=== PATIENT | female | born 1975 | race Caucasian/White ===

== ENCOUNTER 2018-02-23 04:28 | Emergency (ER) | payer OTHER ==
[~2018-02-23] VITALS: Ht 162.6 cm; Wt 58.1 kg
--- OUTSIDE RECORDS SUMMARY | 2018-02-23 04:42 | XMS REPORT ---
Author Author MIAH BLAKE Organization [facility] Address [address] [place] [address] Care Team Providers Care Lamp Mechanic Name Role Phone MIAH BLAKE Unavailable PROBLEMS Type Condition ICD9-CM Code [id number] Code Onset Dates Condition Status SNOMED Code Problem Chronic pain syndrome G89.4 Active 502931541 Problem Encounter for dental examination Z01.20 Active 262197242 Problem Psoriasis L40.9 Active 9782784 Problem Alcohol abuse F10.10 Active 79024289 Problem Essential hypertension I10 Active 28077501 ALLERGIES Substance Reaction Event Type Date Status Vicodin itching Drug Allergy Jun, Active SOCIAL HISTORY No smoking Hx information available PLAN OF CARE Activity Details Follow Up prn Reason: VITAL SIGNS Height 64.25 in 2016-07-10 Weight 142.0 lbs 2016-07-10 Temperature 98.4 degrees Fahrenheit 2016-07-10 BMI 24.18 kg/m2 2016-07-10 Blood pressure systolic 116 mmHg 2016-07-10 Blood pressure diastolic 72 mmHg 2016-07-10 MEDICATIONS Medication Instructions Dosage Frequency Start Date End Date Duration Status Potassium Active Zinc Active Calcium 1 tab Active PredniSONE 10 MG Orally Once a day 4 tabs for 3D, then 3tabs for 3D, then 2tabs for 3D, then 1 tab for 3D, then 1/2 tab for 4D then stop 24h Jun, Jul, 14 day(s) Active Calcium Magnesium Active Hydrocortisone 1 % Externally Twice a day 1 application to affected area 12h Jun, Jun, 14 days Active Neurontin 300 MG Orally Three times a day 1 capsule 8h Mar, Active Propranolol HCl 20 mg Orally Twice a day 1 tablet 12h Mar, Short script to get through to appt 07/10 Active RESULTS No Results PROCEDURES Procedure Date Ordered Related Diagnosis Body Site Office Visit, Est Pt., Level 3 Jul 10, 2016 IMMUNIZATIONS No Known Immunizations
--- OUTSIDE RECORDS SUMMARY | 2018-02-23 04:42 | XMS REPORT ---
Author Author MIAH BLAKE [facility] Address [address] [place] [address] Care Team Providers Care Associate Web Developer Name Role Phone MIAH BLAKE Unavailable PROBLEMS Type Condition ICD9-CM Code [id number] Code Onset Dates Condition Status SNOMED Code Problem Essential hypertension I10 Active 86737082 Problem Alcohol abuse F10.10 Active 13073802 ALLERGIES Unknown Allergies SOCIAL HISTORY No smoking Hx information available PLAN OF CARE VITAL SIGNS MEDICATIONS Medication Instructions Dosage Frequency Start Date End Date Duration Status Hydrocortisone 1 % Externally Twice a day 1 application to affected area 12h 12 Jun, 2016 Jun, 14 days Active RESULTS No Results PROCEDURES No Known procedures IMMUNIZATIONS No Known Immunizations
--- OUTSIDE RECORDS SUMMARY | 2018-02-23 04:42 | XMS REPORT ---
Author Author MIAH BLAKE [facility] Address [address] [place] [address] Care Team Providers Care Veneer Jointer Offbearer Name Role Phone MIAH BLAKE Unavailable PROBLEMS Type Condition ICD9-CM Code [id number] Code Onset Dates Condition Status SNOMED Code Problem Chronic pain syndrome G89.4 Active 530625106 Problem Encounter for dental examination Z01.20 Active 526196369 Problem Psoriasis L40.9 Active 7993839 Problem Alcohol abuse F10.10 Active 32882350 Problem Essential hypertension I10 Active 92059822 ALLERGIES No Known Allergies SOCIAL HISTORY No smoking Hx information available PLAN OF CARE VITAL SIGNS MEDICATIONS Medication Instructions Dosage Frequency Start Date End Date Duration Status Propranolol HCl 20 MG TAKE ONE TABLET BY MOUTH TWICE DAILY 30 Active RESULTS No Results PROCEDURES No Known procedures IMMUNIZATIONS No Known Immunizations
--- OUTSIDE RECORDS SUMMARY | 2018-02-23 04:42 | XMS REPORT ---
Author Author MIAH BLAKE [facility] Address [address] [place] [address] Care Team Providers Care Seam Rubbing Machine Operator Name Role Phone MIAH BLAKE Unavailable PROBLEMS Type Condition ICD9-CM Code [id number] Code Onset Dates Condition Status SNOMED Code Problem Chronic pain syndrome G89.4 Active 066854900 Problem Encounter for dental examination Z01.20 Active 616277254 Problem Psoriasis L40.9 Active 6179025 Problem Essential hypertension I10 Active 50363075 Problem Alcohol abuse F10.10 Active 24800496 ALLERGIES No Known Allergies SOCIAL HISTORY No smoking Hx information available PLAN OF CARE VITAL SIGNS MEDICATIONS Unknown Medications RESULTS No Results PROCEDURES No Known procedures IMMUNIZATIONS No Known Immunizations
--- OUTSIDE RECORDS SUMMARY | 2018-02-23 04:42 | XMS REPORT ---
Author Author CLAUDY TEMPLE Organization [employer] Address Unknown Phone Unavailable Care Team Providers Care Scientific Technical Writer Name Role Phone CLAUDY TEMPLE CP Unavailable Allergies No Known Allergies Problems Problem Type Condition Code Onset Dates Condition Status Problem Missed periods N92.6 Active Problem Urinary tract infection, site not specified 599.0 Active Problem Late menstruation N91.0 Active Problem Other specified cardiac dysrhythmias 427.89 Active Problem Other, multiple, and unspecified sites, insect bite, nonvenomous, without mention of infection 919.4 Active Problem Dermatophytosis of the body 110.5 Active Problem Nausea with vomiting 787.01 Active Medications Medication Code System Code Instructions Start Date End Date Status Dosage Neurontin [facility] [address]-23 300 MG Orally Three times a day Apr 10, 2016 1 capsule Propranolol HCl [facility] [address]-50 10 mg Orally Twice a day Apr 10, 2016 2 tablet Results No Known Results Summary Purpose [employer] Submission
--- OUTSIDE RECORDS SUMMARY | 2018-02-23 04:42 | XMS REPORT ---
Author Author MIAH BLAKE Organization [facility] Address [address] [place] [address] Care Team Providers Care Structured Cabling Technician Name Role Phone MIAH BLAKE Unavailable PROBLEMS Type Condition ICD9-CM Code [id number] Code Onset Dates Condition Status SNOMED Code Problem Chronic pain syndrome G89.4 Active 217807057 Problem Encounter for dental examination Z01.20 Active 517324427 Problem Psoriasis L40.9 Active 2430289 Problem Alcohol abuse F10.10 Active 65617373 Problem Essential hypertension I10 Active 90251626 ALLERGIES Substance Reaction Event Type Date Status Vicodin itching Drug Allergy Aug, Active SOCIAL HISTORY Never Assessed PLAN OF CARE Activity Details Follow Up 2 Months Reason: VITAL SIGNS Height 64.25 in 2016-09-02 Weight 144.6 lbs 2016-09-02 Temperature 98.0 degrees Fahrenheit 2016-09-02 BMI 24.63 kg/m2 2016-09-02 Blood pressure systolic 120 mmHg 2016-09-02 Blood pressure diastolic 76 mmHg 2016-09-02 MEDICATIONS Medication Instructions Dosage Frequency Start Date End Date Duration Status Gabapentin 300 MG TAKE ONE CAPSULE BY MOUTH THREE TIMES DAILY 20 Active Propranolol HCl 20 MG TAKE ONE TABLET BY MOUTH TWICE DAILY 30 Active Albuterol Sulfate HFA 108 (90 Base) MCG/ACT Inhalation every 4 hrs 2 puffs as needed 4h Aug, 30 days Active RESULTS Name Result Date Reference Range CULTURE, FUNGAL 2016-09-02 Fungus (Mycology) Culture Final report Result 1 PROCEDURES Procedure Date Ordered Result Body Site SKIN FUNGI CULTURE Sep 02, 2016 IMMUNIZATIONS No Known Immunizations MEDICAL (GENERAL) HISTORY Type Description Date Medical History hypertension Surgical History dilatation and curettage Hospitalization History Addiction treatment center 04/2016-05/2016
--- OUTSIDE RECORDS SUMMARY | 2018-02-23 04:42 | XMS REPORT ---
Author Author CLAUDY TEMPLE Organization [employer] Address Unknown Phone Unavailable Care Team Providers Care Rubber Goods Tester Water Name Role Phone CLAUDY TEMPLE CP Unavailable Allergies No Known Allergies Problems Problem Type Condition Code Onset Dates Condition Status Problem Dermatophytosis of the body 110.5 Active Problem Nausea with vomiting 787.01 Active Problem Urinary tract infection, site not specified 599.0 Active Assessment Alcohol abuse F10.10 Active Problem Other specified cardiac dysrhythmias 427.89 Active Problem Other, multiple, and unspecified sites, insect bite, nonvenomous, without mention of infection 919.4 Active Medications Medication Code System Code Instructions Start Date End Date Status Dosage Neurontin [facility] [address]-63 300 MG Orally Three times a day Apr 10, 2016 1 capsule Propranolol HCl [facility] [address]-60 10 mg Orally Twice a day Apr 10, 2016 2 tablet Results No Known Results Summary Purpose [employer] Submission
--- OUTSIDE RECORDS SUMMARY | 2018-02-23 04:42 | XMS REPORT ---
Author Author CLAUDY TEMPLE [facility] Address [address] [place] [address] Care Team Providers Care Paving Bed Maker Name Role Phone CLAUDY TEMPLE Unavailable PROBLEMS Unknown Problems ALLERGIES Unknown Allergies SOCIAL HISTORY No smoking Hx information available PLAN OF CARE VITAL SIGNS MEDICATIONS Unknown Medications RESULTS No Results PROCEDURES No Known procedures IMMUNIZATIONS No Known Immunizations
--- OUTSIDE RECORDS SUMMARY | 2018-02-23 04:42 | XMS REPORT ---
Author Author MIAH BLAKE Organization [facility] Address [address] [place] [address] Care Team Providers Care Business Continuity Planning Director Name Role Phone MIAH BLAKE Unavailable PROBLEMS Type Condition ICD9-CM Code [id number] Code Onset Dates Condition Status SNOMED Code Problem Chronic pain syndrome G89.4 Active 096928526 Problem Alcohol abuse F10.10 Active 71238287 Problem Essential hypertension I10 Active 63873926 Problem Psoriasis L40.9 Active 4411907 ALLERGIES Substance Reaction Event Type Date Status Vicodin itching Drug Allergy Dec, Active ENCOUNTERS Encounter Location Date Diagnosis [facility] [id number] [place] [phone] Dec, Essential hypertension I10 and Chronic pain syndrome G89.4 [facility] [id number] [place] [phone] Aug, [facility] [id number] [place] [phone] Aug, Dermatitis L30.9 ; Sebaceous cyst L72.3 ; Pain in right hand M79.641 and Pain of left hand M79.642 [facility] [address] [place] [phone] Jul, [facility] [id number] [place] [phone] Jul, Encounter for dental examination Z01.20 [facility] [id number] [place] [phone] Jun, [facility] [id number] [place] [phone] Jun, [facility] [id number] [place] [phone] Jun, Dermatitis L30.9 [facility] [address] [phone] Jun, [facility] [id number] [place] [phone] May, [facility] [address] [phone] May, Essential hypertension I10 [facility] [address] [phone]- [address] May, Dermatitis L30.9 ; Essential hypertension I10 and Alcohol abuse F10.10 [facility] [id number] [place] [phone] May, Encounter for dental examination and cleaning without abnormal findings Z01.[address] [phone] May, [facility] [id number] [place] [phone] May, Missed periods N92.[address] [phone] Apr, Alcohol abuse F10.10 [facility] [address] [phone] Mar, [address] [id number] [place] [phone] Mar, Alcohol abuse F10.10 ; Nausea and vomiting, intractability of vomiting not specified, unspecified vomiting type R11.2 and Encounter for test, result unknown Z32.00 [facility] [id number] [place] [phone] 14 Oct, 2014 [facility] [id number] [place] [phone] Oct, [id number] [phone] Jan, [facility] [address] [address] Jan, [facility] [address] [address] Jan, [facility] [id number] [phone] Jan, [facility] [address] [address] Dec, [facility] [id number] [place] [phone] Dec, [facility] [id number] [address] Dec, [facility] [address] [address] Feb, [facility] [id number] [phone] Feb, IMMUNIZATIONS No Known Immunizations SOCIAL HISTORY Never Assessed REASON FOR VISIT Blood Pressure - TASH Arnett PLAN OF CARE Activity Details Follow Up 6 Months with Mallorie anton/ryan HTN Reason: VITAL SIGNS Height 64.25 in 2017-01-15 Weight 143.5 lbs 2017-01-15 Temperature 98.2 degrees Fahrenheit 2017-01-15 Heart Rate 80 bpm 2017-01-15 Respiratory Rate 20 2017-01-15 BMI 24.44 kg/m2 2017-01-15 Blood pressure systolic 112 mmHg 2017-01-15 Blood pressure diastolic 60 mmHg 2017-01-15 MEDICATIONS Medication Instructions Dosage Frequency Start Date End Date Duration Status Calcium Magnesium Not-Taking Propranolol HCl 20 mg PO Twice a day 1 12h 30 Active Neurontin 300 MG Orally Three times a day 1 capsule 8h Mar, Not-Taking Calcium 1 tab Not-Taking Zinc Not-Taking ProAir HFA 108 (90 Base) MCG/ACT Inhalation every 4 hrs 2 puffs as needed 4h Dec, Active Gabapentin 300 MG Orally TID 1 8h 30 days Active Potassium Not-Taking RESULTS No Results PROCEDURES No Known procedures INSTRUCTIONS MEDICATIONS ADMINISTERED No Known Medications MEDICAL (GENERAL) HISTORY Type Description Date Medical History hypertension Surgical History dilatation and curettage Hospitalization History Addiction treatment center 04/2016-05/2016
--- OUTSIDE RECORDS SUMMARY | 2018-02-23 04:42 | XMS REPORT ---
Author Author MIAH BLAKE Organization [facility] Address [address] [place] [address] Care Team Providers Care Guide Delegate Name Role Phone MIAH BLAKE Unavailable PROBLEMS Type Condition ICD9-CM Code [id number] Code Onset Dates Condition Status SNOMED Code Problem Essential hypertension I10 Active 65739570 Problem Alcohol abuse F10.10 Active 28004597 Assessment Dermatitis L30.9 May, Active 62437322 ALLERGIES Substance Reaction Event Type Date Status Vicodin itching Drug Allergy May, Active SOCIAL HISTORY No smoking Hx information available PLAN OF CARE VITAL SIGNS Height 64.25 in 2016-06-10 Weight 140.3 lbs 2016-06-10 Heart Rate 88 bpm 2016-06-10 Respiratory Rate 20 2016-06-10 BMI 23.89 kg/m2 2016-06-10 Blood pressure systolic 110 mmHg 2016-06-10 Blood pressure diastolic 78 mmHg 2016-06-10 MEDICATIONS Medication Instructions Dosage Frequency Start Date End Date Duration Status Potassium Active PredniSONE 50 MG Orally Once a day 1 tablet 24h May, May, 7 day(s) Active Neurontin 300 MG Orally Three times a day 1 capsule 8h Mar, 30 days Active Zinc Active Calcium Magnesium Active Propranolol HCl 10 mg Orally Twice a day 2 tablet 12h Mar, 30 days Active Calcium 1 tab Active RESULTS No Results PROCEDURES Procedure Date Ordered Related Diagnosis Body Site Office Visit, Est Pt., Level 4 Jun 10, 2016 IMMUNIZATIONS No Known Immunizations
--- OUTSIDE RECORDS SUMMARY | 2018-02-23 04:42 | XMS REPORT ---
Author CLAUDY Munoz Organization [employer] Address Unknown Phone Unavailable Care Team Providers Care Crate Liner Name Role Phone CLAUDY TEMPLE CP Unavailable Allergies, Adverse Reactions, Alerts Substance Reaction Event Type Vicadin Info Not Available Non Drug Allergy Problems Problem Type Condition Code Onset Dates Condition Status Assessment Encounter for test, result unknown Z32.00 Active Problem Dermatophytosis of the body 110.5 Active Problem Nausea with vomiting 787.01 Active Problem Urinary tract infection, site not specified 599.0 Active Assessment Alcohol abuse F10.10 Active Assessment Nausea and vomiting, intractability of vomiting not specified, unspecified vomiting type R11.2 Active Problem Other specified cardiac dysrhythmias 427.89 Active Problem Other, multiple, and unspecified sites, insect bite, nonvenomous, without mention of infection 919.4 Active Medications Medication Code System Code Instructions Start Date End Date Status Dosage Propranolol HCl [facility] [address]-10 10 mg Orally Twice a day Apr 10, 2016 2 tablet Phenergan [facility] [address]-31 25 MG Rectal at night Apr 10, 2016 1 suppository as needed Neurontin [facility] [address]-80 300 MG Orally Three times a day Apr 10, 2016 1 capsule Procedures Procedure Coding System Code Date THER/PROPH/DIAG INJ, SC/IM CPT-4 16642 Apr 10, 2016 Office Visit, New Pt., Level 3 CPT-4 57986 Apr 10, 2016 PHENERGAN (IM) 12.5 MG (25 MG/ML) CPT-4 J2550 Apr 10, 2016 Vital Signs Date/Time: Apr 10, 2016 Cardiac Monitoring Heart Rate 105 bpm Weight 130.3 lbs Height 64.25 in BMI 22.19 Index Blood Pressure Diastolic 102 mmHg Blood Pressure Systolic 198 mmHg Results No Known Results Summary Purpose [employer] Submission
--- OUTSIDE RECORDS SUMMARY | 2018-02-23 04:43 | XMS REPORT | Continuity of Care Document ---
Author Author [facility] Organization [facility] Address [facility] [address] [place] [address] Phone Unavailable Support Name Relationship Address Phone MIMI ZARAGOZA DO Caregiver [address] [place] [address] Unavailable Douglas Braga MD Caregiver [address] [place] [address] AZUL BARBER Next Of Kin [address] [place] [address] Insurance Providers Payer Name Policy Number Subscriber Name Relationship Self Pay Insurance Mimi Mendez Self / Same As Patient Advance Directives Directive Response Recorded Date/Time Do you have an Advanced Directive? No 01/14/10 6:17am Advance Directives No 10/28/12 2:33pm Living Will No 10/28/12 2:33pm Health Care Proxy No 06/12/15 8:23am Power of Manager Search for Health Care No 10/28/12 2:33pm Organ, Tissue, or Eye Donor No 10/28/12 2:33pm Do you have a signed organ donor card? No 01/14/10 6:17am Chief Complaint and Reason for Visit Chief Complaint NAUSEA & VOMITING Reason for Visit Alcohol abuse [id number] Nausea and vomiting Problems Active Problems Medical Problem Onset Date Status Acute chest wall pain Unknown Acute Alcohol abuse Unknown Acute Ankle sprain Unknown Acute Dermatitis Unknown Acute Hypertension Unknown Acute Nausea and vomiting Unknown Acute Tobacco abuse Unknown Acute sprain of hand Unknown Acute uncontrolled hypertension Unknown Acute Medications Current Home Medications Medication Dose Units Route Directions Days/Qty Instructions Start Date Chlordiazepoxide Hcl 10 Mg 10 Mg Oral Four Times Daily as needed for Withdrawal Symptoms 30 06/12/15 Ondansetron* 4 Mg/Tab 4 Mg Oral Three Times Daily As Needed for Nausea/ Vomiting 10 06/12/15 Past Home Medications Medication Directions Ordered Status Acetaminophen/Hydrocodone Bitart 1 Tab Tablet, 1 Tab Oral Every 4 Hrs As Needed Pain 01/14/10 Discontinued Methylprednisolone 4 Mg Dspk, 4 Mg Oral Take As Directed 02/10/10 Discontinued Albuterol 1 Puff Inh, As Needed 10/28/12 Discontinued Promethazine Hcl 25 Mg Tablet, 25 Mg Oral Every 4-6 Hrs As Needed Nausea 05/01 Discontinued Prednisone 20 Mg Tablet, 20 Mg Oral Daily 03/03/13 Discontinued [Proair] , 2 Puff Inhalation As Needed 03/03/13 Discontinued Acetaminophen/ Codeine #3 Tab* 1 Tab Tablet, 1 Ea Oral Every 4-6 Hours for Pain 05/16/13 Discontinued Diclofenac Sodium (Voltaren 75MG*) 75 Mg Tablet.dr, 75 Mg Oral Twice A Day for Pain 05/16/13 Discontinued Butalb/Acetaminophen/Caffeine 1 Each Capsule, 1 Tab Oral Twice Daily As Needed 11/16/13 Discontinued Naproxen 500 Mg Tablet, 500 Mg Oral Twice A Day as needed for Pain 11/28/13 Discontinued Acetaminophen/Hydrocodone Bitart (Lortab 5-325*) 1 Tab Tablet, 1 Ea Oral Every 4-6 Hrs As Needed Pain as needed for Pain 11/28/13 Discontinued Lisinopril (Zestril 20 Mg Tab*) 20 Mg Tablet, 20 Mg Oral Daily 09/25/14 Discontinued Acetaminophen 500 Mg Tablet, Mg Oral As Needed 09/25/14 Discontinued Meloxicam 15 Mg Tablet, 15 Mg Oral Daily 09/25/14 Discontinued Lisinopril (Zestril 20 Mg Tab*) 20 Mg Tablet, 20 Mg Oral Daily 12/18/14 Discontinued Acetaminophen/Hydrocodone Bitart (Lortab 5-325*) 1 Tab Tablet, 1 Each Oral Every 6 Hrs As Needed For Pain 12/18/14 Discontinued Social History Social History Problem Response Recorded Date/Time Smoking Status Current every day smoker 10/28/2012 3:25pm Tobacco Use Cigarettes 10/28/2012 3:25pm Query Response Start Date Stop Date Smoking Status Current every day smoker Hospital Discharge Instructions No hospital discharge instructions. Plan of Care Discharge Date 06/12/15 10:12am Condition at Discharge Stable Instructions/Education Provided Acute Nausea and Vomiting (ED) Prescriptions See Medication Section Referrals Douglas Braga MD - 1 Week Additional Instructions/Education Please return with any worsening symptoms Functional Status Query Response Date Recorded Malcolm Coma Scale Total 15 June 12, 2015 10:12am Patient Behavior Cooperative June 12, 2015 10:12am Allergies, Adverse Reactions, Alerts Allergen Type Severity Reaction Status Last Updated Poison adan extract Allergy Unknown Active 06/12/15 RC COLA Allergy Unknown Active 06/12/15 Immunizations Name Given Type Hx Diphtheria, Pertussis, Tetanus Vaccination Up To Date Historical Hx Influenza Vaccination No Historical Hx Pneumococcal Vaccination No Historical Vital Signs Acute Vital Signs Vital Response Date/Time Temperature (Fahrenheit) 99.3 degrees F (97.6 - 99.5) 06/12/2015 10:12am Temperature Source Temporal Artery 06/12/2015 10:12am Pulse Rate (adult) 94 bpm (60 - 90) 06/12/2015 10:12am Respiratory Rate 20 bpm (12 - 24) 06/12/2015 10:12am Blood Pressure 164/98 mm Hg 06/12/2015 10:12am O2 Sat by Pulse Oximetry 98 % (90 - 100) 06/12/2015 10:12am Oxygen Delivery Method 06/12/2015 10:12am Pain Description 06/12/2015 8:31am Height 5 ft 4 in Weight 125 lb Body Mass Index 21.0 kg/m^2 Results Laboratory Results Test Name Result Units Flags Reference Collection Date/Time Result Date/ Time Comments White Blood Count 6.1 K/uL 4.8-10.8 06/12/2015 8:39am 06/12/2015 9: 11am Red Blood Count 4.22 M/uL 4.20-5.40 06/12/2015 8:39am 06/12/2015 9: 11am Hemoglobin 13.6 gm/dL 12.0-16.0 06/12/2015 8:39am 06/12/2015 9:11am Hematocrit 40.0 % 37.0-47.0 06/12/2015 8:39am 06/12/2015 9:11am Mean Corpuscular Volume 94.8 fL 81.0-99.0 06/12/2015 8:39am 06/12/2015 9:11am Mean Corpuscular Hemoglobin 32.3 pg H 27.0-31.0 06/12/2015 8:39am 2014 9:11am Mean Corpuscular Hemoglobin Concent 34.1 g/dL 30.0-37.0 06/12/2015 8: 39am 06/12/2015 9:11am Red Cell Distribution Width 13.8 % 11.5-14.5 06/12/2015 8:392014 9:11am Platelet Count 243 K/uL 130-400 06/12/2015 8:3906/12/2015 9:11am Mean Platelet Volume 7.5 fL 7.4-10.4 06/12/2015 8:39am 06/12/2015 9: 11am Neutrophils (%) (Auto) 74.5 % 42.2-75.2 06/12/2015 8:3906/12/2015 9: 11am Lymphocytes (%) (Auto) 17.6 % L 20.5-51.1 06/12/2015 8:3906/12/2015 9 :11am Monocytes (%) (Auto) 5.7 % 1.7-9.3 06/12/2015 8:3906/12/2015 9:11am Eosinophils (%) (Auto) 1.0 % 0-3 06/12/2015 8:3906/12/2015 9:11am Basophils (%) (Auto) 1.1 % H 0.0-1.0 06/12/2015 8:3906/12/2015 9: 11am Neutrophils # (Auto) 4.6 K/uL 2.0-6.9 06/12/2015 8:3906/12/2015 9: 11am Lymphocytes # (Auto) 1.1 K/uL L 1.2-3.4 06/12/2015 8:3906/12/2015 9: 11am Monocytes # (Auto) 0.4 K/uL 0.1-0.6 06/12/2015 8:3906/12/2015 9: 11am Eosinophils # (Auto) 0.1 K/uL 0.0-0.7 06/12/2015 8:3906/12/2015 9: 11am Basophils # (Auto) 0.1 K/uL 0.0-0.2 06/12/2015 8:3906/12/2015 9: 11am Random Glucose 91 mg/dL 70-110 06/12/2015 8:3906/12/2015 9:17am Blood Urea Nitrogen 5 mg/dL L 7-18 06/12/2015 8:3906/12/2015 9:17am Creatinine 0.6 mg/dL 0.55-1.02 06/12/2015 8:39am 06/12/2015 9:17am Sodium Level 138 mEq/L 136-145 06/12/2015 8:39am 06/12/2015 9:17am Potassium Level 3.3 mEq/L L 3.5-5.0 06/12/2015 8:39am 06/12/2015 9:17am Chloride Level 100 mEq/L 98-107 06/12/2015 8:39am 06/12/2015 9:17am Carbon Dioxide Level 25.4 mEq/L 21-32 06/12/2015 8:39am 06/12/2015 9: 17am Calcium Level 7.8 mg/dL L 8.8-10.5 06/12/2015 8:39am 06/12/2015 9:17am Total Protein 7.0 gm/dL 6.4-8.2 06/12/2015 8:39am 06/12/2015 9:17am Albumin 3.6 gm/dL 3.4-5.0 06/12/2015 8:39am 06/12/2015 9:17am Total Bilirubin 1.20 mg/dL H 0.00-1.00 06/12/2015 8:39am 06/12/2015 9: 17am Aspartate Amino Transf (AST/SGOT) 72 U/L H 15-37 06/12/2015 8:39am 06/12 9:17am Alanine Aminotransferase (ALT/SGPT) 78 U/L 12-78 06/12/2015 8:39am 9:17am Total Alkaline Phosphatase 93 U/L 46-116 06/12/2015 8:39am 06/12/2015 9 :17am Lipase 198 U/L 65-230 06/12/2015 8:39am 06/12/2015 9:17am Urine Color YELLOW YELLOW 06/12/2015 9:15am 06/12/2015 9:42am Urine Appearance CLEAR CLEAR 06/12/2015 9:15am 06/12/2015 9:42am Urine Glucose (UA) NEGATIVE mg/dL NEGATIVE 06/12/2015 9:15am 2014 9:42am Urine Bilirubin NEGATIVE NEGATIVE 06/12/2015 9:15am 06/12/2015 9: 42am Urine Ketones NEGATIVE mg/dL NEGATIVE 06/12/2015 9:15am 06/12/2015 9: 42am Urine Specific [place] 1.020 1.010-1.025 06/12/2015 9:15am 2014 9:42am Urine Occult Blood NEGATIVE NEGATIVE 06/12/2015 9:15am 06/12/2015 9: 42am Urine pH 7.5 5.0-8.0 06/12/2015 9:15am 06/12/2015 9:42am Urine Protein TRACE mg/dL H NEGATIVE 06/12/2015 9:15am 06/12/2015 9: 42am Urine Urobilinogen 1.0 mg/dL E.U./dL 0.2-1.0 06/12/2015 9:15am 2014 9:42am Urine Nitrate NEGATIVE NEGATIVE 06/12/2015 9:15am 06/12/2015 9:42am Urine Leukocyte Esterase NEGATIVE NEGATIVE 06/12/2015 9:15am 2014 9:42am Urine RBC NEGATIVE /hpf 0 06/12/2015 9:15am 06/12/2015 9:42am Urine WBC 5-9 /hpf H 0-4 06/12/2015 9:15am 06/12/2015 9:42am Urine Squamous Epithelial Cells 6-8 /hpf 0-1 06/12/2015 9:15am 2014 9:42am RARE CLUE CELL NOTED Urine Bacteria 1+ H NEGATIVE 06/12/2015 9:15am 06/12/2015 9:42am Urine Mucus FEW H NEGATIVE 06/12/2015 9:15am 06/12/2015 9:42am Urine HCG, Qualitative NEGATIVE NEG 06/12/2015 9:15am 06/12/2015 9: 03am Glomerular Filtration Rate Calc 117.1 mL/min 06/12/2015 8:39am 2014 9:17am Procedures No known history of procedures. Encounters Encounter Location Arrival/Admit Date Discharge/Depart Date Attending Provider Departed Emergency Room [place] 06/12/15 8:23am 06/12/15 10:12am MIMI ZARAGOZA DO Recent Diagnosis
--- OUTSIDE RECORDS SUMMARY | 2018-02-23 04:43 | XMS REPORT ---
Author Author HALI ULIS [facility] Address [address] [place] [address] Care Team Providers Care Hoisting Laborer Name Role Phone HALI LUIS Unavailable PROBLEMS Type Condition ICD9-CM Code [id number] Code Onset Dates Condition Status SNOMED Code Problem Chronic pain syndrome G89.4 Active 370677208 Problem Encounter for dental examination Z01.20 Active 273880578 Problem Psoriasis L40.9 Active 5038318 Problem Alcohol abuse F10.10 Active 72338828 Problem Essential hypertension I10 Active 99720688 ALLERGIES Substance Reaction Event Type Date Status Vicodin itching Drug Allergy Jul, Active SOCIAL HISTORY No smoking Hx information available PLAN OF CARE Activity Details Follow Up PRN Reason:Pt was referred out VITAL SIGNS Heart Rate 80 bpm 2016-07-22 Blood pressure systolic 107 mmHg 2016-07-22 Blood pressure diastolic 69 mmHg 2016-07-22 MEDICATIONS Medication Instructions Dosage Frequency Start Date End Date Duration Status Gabapentin 300 MG TAKE ONE CAPSULE BY MOUTH THREE TIMES DAILY 20 Active PredniSONE 10 MG Orally Once a day 4 tabs for 3D, then 3tabs for 3D, then 2tabs for 3D, then 1 tab for 3D, then 1/2 tab for 4D then stop 24h Jun, Jul, 14 day(s) Active Propranolol HCl 20 MG TAKE ONE TABLET BY MOUTH TWICE DAILY 30 Active RESULTS No Results PROCEDURES Procedure Date Ordered Related Diagnosis Body Site BITEWINGS - FOUR FILMS Jul 22, 2016 PANORAMIC FILM SEE ALSO CODE 37631 Jul 22, 2016 COMP ORAL EVALUATION - NEW/EST PT Jul 22, 2016 INTRAORL-PERIAPICAL 1 FILM 28275 Jul 22, 2016 INTRAORL-PERIAPICAL EA ADD FILM Jul 22, 2016 INTRAORL-PERIAPICAL EA ADD FILM Jul 22, 2016 INTRAORL-PERIAPICAL EA ADD FILM Jul 22, 2016 INTRAORL-PERIAPICAL EA ADD FILM Jul 22, 2016 INTRAORL-PERIAPICAL EA ADD FILM Jul 22, 2016 INTRAORL-PERIAPICAL EA ADD FILM Jul 22, 2016 INTRAORL-PERIAPICAL EA ADD FILM Jul 22, 2016 IMMUNIZATIONS No Known Immunizations
--- OUTSIDE RECORDS SUMMARY | 2018-02-23 04:43 | XMS REPORT ---
Author Author MIAH BLAKE [facility] Address [address] [place] [address] Care Team Providers Care Disability Advocate Name Role Phone MIAH BLAKE Unavailable PROBLEMS Type Condition ICD9-CM Code [id number] Code Onset Dates Condition Status SNOMED Code Problem Chronic pain syndrome G89.4 Active 679088507 Problem Encounter for dental examination Z01.20 Active 405502549 Problem Psoriasis L40.9 Active 8738671 Problem Essential hypertension I10 Active 49226528 Problem Alcohol abuse F10.10 Active 51532846 ALLERGIES No Known Allergies SOCIAL HISTORY No smoking Hx information available PLAN OF CARE VITAL SIGNS MEDICATIONS Unknown Medications RESULTS No Results PROCEDURES No Known procedures IMMUNIZATIONS No Known Immunizations
--- OUTSIDE RECORDS SUMMARY | 2018-02-23 04:43 | XMS REPORT ---
Author Author MIAH BLAKE [facility] eClinical[employer] Address Unknown Phone Unavailable Care Team Providers Care Skin Tanner Name Role Phone MIAH BLAKE Unavailable Allergies No Known Allergies Problems Problem Type Condition Code Onset Dates Condition Status Assessment Essential hypertension I10 Active Problem Other specified cardiac dysrhythmias 427.89 Active Problem Other, multiple, and unspecified sites, insect bite, nonvenomous, without mention of infection 919.4 Active Problem Missed periods N92.6 Active Problem Essential hypertension I10 Active Problem Late menstruation N91.0 Active Problem Dermatophytosis of the body 110.5 Active Problem Nausea with vomiting 787.01 Active Problem Alcohol abuse F10.10 Active Problem Urinary tract infection, site not specified 599.0 Active Medications No Known Medications Procedures Procedure Coding System Code Date LIPID PANEL CPT-4 01878 Jun 11, 2016 COMPREHEN METABOLIC PANEL CPT-4 88919 Jun 11, 2016 GLYCATED HEMOGLOBIN TEST CPT-4 58015 Jun 11, 2016 ASSAY OF URINE CREATININE CPT-4 66625 Jun 11, 2016 VENIPUNCT, ROUTINE* CPT-4 39279 Jun 11, 2016 MICROALBUMIN, QUANTITATIVE CPT-4 88683 Jun 11, 2016 Results Name Result Date Reference Range Unit Abnormality Flag MICROALBUMIN/CREATININE RATIO, URINE ----Microalb/Creat Ratio <8.0 [id number] 0.0-30.0 mg/g creat ----Creatinine, Urine 37.3 [id number] Not Estab. mg/dL ----Microalbumin, Urine <3.0 [id number] Not Estab. ug/mL LIPID PANEL ----LDL Cholesterol Calc 92 00654363 0-99 mg/dL ----VLDL Cholesterol Jonn 17 78860501 5-40 mg/dL ----Cholesterol, Total 151 31195968 100-199 mg/dL ----HDL Cholesterol 42 03608235 >39 mg/dL ----Triglycerides 85 37180241 0-149 mg/dL ROUTINE VENIPUNCTURE A1C ----Hemoglobin A1c 4.9 84644230 4.8-5.6 % CMP ----Potassium, Serum 4.0 94009558 3.5-5.2 mmol/L ----Sodium, Serum 135 48320409 136-144 mmol/L L ----BUN/Creatinine Ratio 12 20160611 9-23 ----eGFR If Africn Am 137 92535270 >59 mL/min/1.73 ----eGFR If NonAfricn Am 119 04522726 >59 mL/min/1.73 ----Creatinine, Serum 0.51 49645543 0.57-1.00 mg/dL L ----BUN 6 20160611 6-24 mg/dL ----Glucose, Serum 82 20160611 65-99 mg/dL ----AST (SGOT) 38 20160611 0-40 IU/L ----Globulin, Total 2.9 64947560 1.5-4.5 g/dL ----ALT (SGPT) 36 20160611 0-32 IU/L H ----A/G Ratio 1.4 20160611 1.1-2.5 ----Bilirubin, Total 0.7 64796103 0.0-1.2 mg/dL ----Alkaline Phosphatase, S 80 20160611 39-117 IU/L ----Carbon Dioxide, Total 25 20160611 18-29 mmol/L ----Calcium, Serum 9.5 78646986 8.7-10.2 mg/dL ----Protein, Total, Serum 7.1 49412026 6.0-8.5 g/dL ----Albumin, Serum 4.2 29370772 3.5-5.5 g/dL ----Chloride, Serum 95 44025807 97-106 mmol/L L Summary Purpose eClinicalWorks Submission
--- OUTSIDE RECORDS SUMMARY | 2018-02-23 04:43 | XMS REPORT | Continuity of Care Document ---
Author Author [facility] Organization [facility] Address [facility] [address] [place] [address] Phone Unavailable Support Name Relationship Address Phone MIMI ZARAGOZA DO Caregiver [address] [place] [address] Unavailable Douglas Braga MD Caregiver [address] [place] [address] AZUL BARBER Next Of Kin [address] [place] [address] Insurance Providers Payer Name Policy Number Subscriber Name Relationship Self Pay Insurance Mimi Mendez Self / Same As Patient Advance Directives Directive Response Recorded Date/Time Do you have an Advanced Directive? No 01/14/10 6:17am Advance Directives No 09/05/15 9:32pm Living Will No 09/05/15 9:32pm Health Care Proxy No 09/05/15 9:32pm Power of Regional Liaison for Health Care No 09/05/15 9:32pm Organ, Tissue, or Eye Donor No 09/05/15 9:32pm Do you have a signed organ donor card? No 09/05/15 9:32pm Chief Complaint and Reason for Visit Chief Complaint COUGH Reason for Visit [id number] Problems Active Problems Medical Problem Onset Date Status Acute chest wall pain Unknown Acute Alcohol abuse Unknown Acute Alcoholic ketoacidosis Unknown Acute Ankle sprain Unknown Acute Dermatitis Unknown Acute Elevated blood pressure Unknown Acute Hypertension Unknown Acute Nausea and [...] As Needed for Nausea/ Vomiting 10 06/12/15 Chlordiazepoxide Hcl 10 Mg 50 Mg Oral Four Times Daily as needed for Withdrawal Symptoms 30 09/06/15 Ondansetron* 4 Mg/Tab 4 Mg Oral Three Times Daily As Needed as needed for Nausea/Vomiting 09/06/15 Past Home Medications Medication Directions Ordered Status [...] Date/Time Smoking Status Current every day smoker 09/05/2015 10:03pm Tobacco Use Cigarettes 09/05/2015 10:03pm Alcohol Use alcoholic 09/05/2015 10:03pm Drug Use none 09/05/2015 10:03pm Query Response Start Date Stop Date Smoking Status Current every day smoker Hospital Discharge Instructions No hospital discharge instructions. Plan of Care Discharge Date 09/06/15 2:20am Condition at Discharge Stable Instructions/Education Provided Alcohol Withdrawal (ED) Prescriptions See Medication Section Referrals Your Physician - 2-3 Days Additional Instructions/Education Please return immediately if nausea and vomiting returns Functional Status Query Response Date Recorded Malcolm Coma Scale Total 15 September 05, 2015 9:40pm Patient Behavior Cooperative Appropriate September 05, 2015 9:40pm Allergies, Adverse Reactions, Alerts Allergen Type Severity Reaction Status Last Updated Poison adan extract Allergy Unknown Active 06/12/15 RC COLA Allergy Unknown Active 06/12/15 Immunizations Name Given Type Hx Diphtheria, Pertussis, Tetanus Vaccination Unknown Historical Hx Influenza Vaccination No Historical Hx Pneumococcal Vaccination No Historical Vital Signs Acute Vital Signs Vital Response Date/Time Temperature (Fahrenheit) 97.9 degrees F (97.6 - 99.5) 09/05/2015 9:40pm Temperature Source Temporal Artery 09/05/2015 9:40pm Pulse Rate (adult) 88 bpm (60 - 90) 09/06/2015 2:10am Respiratory Rate 20 bpm (12 - 24) 09/06/2015 2:10am Blood Pressure 136/88 mm Hg 09/06/2015 2:10am O2 Sat by Pulse Oximetry 98 % (90 - 100) 09/06/2015 2:10am Oxygen Delivery Method 09/06/2015 2:10am Pain Description 06/12/2015 8:31am Height 5 ft 4 in Weight 130 lb Body Mass Index 22.0 kg/m^2 Results Laboratory Results Test Name Result Units Flags Reference Collection Date/Time Result Date/ Time Comments White Blood Count 6.1 K/uL 4.8-10.8 06/12/2015 8:39am 06/12/2015 9: 11am Red Blood Count 4.22 M/uL 4.20-5.40 06/12/2015 8:39am 06/12/2015 9: 11am Hemoglobin 13.6 gm/dL 12.0-16.0 06/12/2015 8:39am 06/12/2015 9:11am Hematocrit 40.0 % 37.0-47.0 06/12/2015 8:39am 06/12/2015 9:11am Mean Corpuscular Volume 94.8 fL 81.0-99.0 06/12/2015 8:3906/12/2015 9:11am Mean Corpuscular Hemoglobin 32.3 pg H 27.0-31.0 06/12/2015 8:392014 9:11am Mean Corpuscular Hemoglobin Concent 34.1 g/dL 30.0-37.0 06/12/2015 8: 3906/12/2015 9:11am Red Cell Distribution Width 13.8 % 11.5-14.5 06/12/2015 8:392014 9:11am Platelet Count 243 K/uL 130-400 06/12/2015 8:39am 06/12/2015 9:11am Mean Platelet Volume 7.5 fL 7.4-10.4 06/12/2015 8:3906/12/2015 9: 11am Neutrophils (%) (Auto) 74.5 % [...] Monocytes # (Auto) 0.4 K/uL 0.1-0.6 06/12/2015 8:39am 06/12/2015 9: 11am Eosinophils # (Auto) 0.1 K/uL 0.0-0.7 06/12/2015 8:39am 06/12/2015 9: 11am Basophils # (Auto) 0.1 K/uL 0.0-0.2 06/12/2015 8:39am 06/12/2015 9: 11am Random Glucose 91 mg/dL 70-110 06/12/2015 8:39am 06/12/2015 9:17am Blood Urea Nitrogen 5 mg/dL L 7-18 06/12/2015 8:39am 06/12/2015 9:17am Creatinine 0.6 mg/dL 0.55-1.02 06/12/2015 8:39am [...] 06/12/2015 9:15am 06/12/2015 9: 42am Urine Specific [place] 1.020 1.010-1.025 06/12/2015 9:15am 2014 9:42am Urine [...] Calc 117.1 mL/min 06/12/2015 8:39am 2014 9:17am Pending Laboratory Results Test Name Collection Date/Time Procedures No known history of procedures. Encounters Encounter Location Arrival/Admit Date Discharge/Depart Date Attending Provider Departed Emergency Room [place] 09/05/15 9:20pm 09/06/15 2:20am MIMI ZARAGOZA DO Departed Emergency Room [place] 06/12/15 8:23am 06/12/15 10:12am MIMI ZARAGOZA DO Recent Diagnosis
--- OUTSIDE RECORDS SUMMARY | 2018-02-23 04:43 | XMS REPORT ---
Author Author DARÍO BAIRD Organization [employer] Address Unknown Phone Unavailable Care Team Providers Care Employee Benefits Attorney Name Role Phone DARÍO BAIRD CP Unavailable Allergies, Adverse Reactions, Alerts Substance Reaction Event Type Vicadin Info Not Available Non Drug Allergy Problems Problem Type Condition Code Onset Dates Condition Status Assessment Missed periods N92.6 Active Problem Missed periods N92.6 Active Problem Urinary [...] Instructions Start Date End Date Status Dosage Potassimin [facility] [address]-23 75 MG Orally Once a day 1 tablet Propranolol HCl [facility] [address]-81 10 mg Orally Twice a day Apr 10, 2016 2 tablet Calcium NDC 0 Oral [place] [address]-22 30 MG Orally Once a day 1 tablet with a meal Neurontin [facility] [address]-85 300 MG Orally Three times a day Apr 10, 2016 1 capsule Procedures Procedure Coding System Code Date Office Visit, Est Pt., Level 3 CPT-4 68123 May 20, 2016 URINE TEST CPT-4 43341 May 20, 2016 Vital Signs Date/Time: May 20, 2016 Cardiac Monitoring Heart Rate 80 bpm Weight 131 lbs Height 64.25 in BMI 22.31 Index Blood Pressure Diastolic 90 mmHg Blood Pressure Systolic 132 mmHg Results Name Result Date Reference Range Unit Abnormality Flag TEST, URINE (IN HOUSE) ----RESULTS negative [id number] ----Lot # [id number] ----Control + [id number] ----Exp date [id number] Summary Purpose eClinicalWorks Submission
--- OUTSIDE RECORDS SUMMARY | 2018-02-23 04:43 | XMS REPORT ---
Author Author MIAH BLAKE [facility] Address [address] [place] [address] Care Team Providers Care Wardrobe Attendant Name Role Phone MIAH BLAKE Unavailable PROBLEMS Type Condition ICD9-CM Code [id number] Code Onset Dates Condition Status SNOMED Code Problem Chronic pain syndrome G89.4 Active 086886100 Problem Encounter for dental examination Z01.20 Active 714455463 Problem Psoriasis L40.9 Active 8810852 Problem Alcohol abuse F10.10 Active 81774995 Problem Essential hypertension I10 Active 15994267 ALLERGIES No Information SOCIAL HISTORY Never Assessed PLAN OF CARE VITAL SIGNS MEDICATIONS Unknown Medications RESULTS No Results PROCEDURES No Known procedures IMMUNIZATIONS No Known Immunizations MEDICAL (GENERAL) HISTORY Type Description Date Medical History hypertension Surgical History dilatation and curettage Hospitalization History [facility] center 04/2016-05/2016
--- OUTSIDE RECORDS SUMMARY | 2018-02-23 04:44 | XMS REPORT | Continuity of Care Document ---
Demographics Preferred Language Unknown Marital Status Unknown [place] Affiliation Unknown Race Unknown Ethnic Group Unknown Author Author [facility] Address Unknown Phone Unavailable Allergies Active Description Code Type Severity Reaction Onset Reported/Identified Relationship to Patient Clinical Status Yes NKDA N/A N/A Yes NKDA N/A N/A Medications Medication Packaging Start Date Stop Date Route Dosage Sig LISINOPRIL ORAL 07/25/2014 ORAL daily Problems Date Dx Coded Attending Type Code Diagnosis Diagnosed By 02/24/2012 110.5 DERMATOPHYTOSIS TINEA CORPORIS 02/24/2012 599.0 URINARY TRACT INFECTION 02/24/2012 110.5 DERMATOPHYTOSIS TINEA CORPORIS 02/24/2012 599.0 URINARY TRACT INFECTION Procedures Code [place] [address] UA LONG DIP 01/07/2013 08134 CULTURE URINE 01/09/2013 Results Test Result Range Comp. Metabolic Panel (14) - 06/11/16 12:51 Glucose, Serum 82 mg/dL 65-99 BUN 6 mg/dL 6-24 Creatinine, Serum 0.51 mg/dL 0.57-1.00 eGFR If NonAfricn Am 119 mL/min/1.73 >59 eGFR If Africn Am 137 mL/min/1.73 >59 BUN/Creatinine Ratio 12 9-23 Sodium, Serum 135 mmol/L 136-144 Potassium, Serum 4.0 mmol/L 3.5-5.2 Chloride, Serum 95 mmol/L 97-106 Carbon Dioxide, Total 25 mmol/L 18-29 Calcium, Serum 9.5 mg/dL 8.7-10.2 Protein, Total, Serum 7.1 g/dL 6.0-8.5 Albumin, Serum 4.2 g/dL 3.5-5.5 Globulin, Total 2.9 g/dL 1.5-4.5 A/G Ratio 1.4 1.1-2.5 Bilirubin, Total 0.7 mg/dL 0.0-1.2 Alkaline Phosphatase, S 80 IU/L 39-117 AST (SGOT) 38 IU/L 0-40 ALT (SGPT) 36 IU/L 0-32 Lipid Panel - 06/11/16 12:51 Cholesterol, Total 151 mg/dL 100-199 Triglycerides 85 mg/dL 0-149 HDL Cholesterol 42 mg/dL >39 VLDL Cholesterol Jonn 17 mg/dL 5-40 LDL Cholesterol Calc 92 mg/dL 0-99 Hemoglobin A1c - 06/11/16 12:51 Hemoglobin A1c 4.9 % 4.8-5.6 Microalb/Creat Ratio, Rand Ur - 06/11/16 12:51 Creatinine, Urine 37.3 mg/dL Not Estab. Microalbumin, Urine <3.0 ug/mL Not Estab. Microalb/Creat Ratio <8.0 mg/g creat 0.0-30.0 Fungus (Mycology) Culture - 09/02/16 17:04 Fungus (Mycology) Culture Note Encounters ACCT No. Visit Date/Time Discharge Status Pt. Type Provider Facility Loc./Unit Complaint [id number] 01/07/2013 13:47:00 Document Registration [id number] 02/24/2012 14:21:00 Document Registration [id number] 10/01/2016 08:35:00 Document Registration [id number] 02/09/2018 17:00:00 02/09/2018 23:59:59 C[facility] [id number] 06/13/2016 07:05:00 Document Registration [id number] 06/13/2016 08:35:00 Document Registration [id number] 02/08/2015 08:09:45 02/08/2015 08:09:46 DIS Outpatient [id number] 07/27/2014 06:03:53 Document Registration [id number] 07/27/2014 06:03:50 Document Registration [id number] 02/28/2016 19:52:29 02/28/2016 19:52:29 DIS Outpatient [facility]
--- OUTSIDE RECORDS SUMMARY | 2018-02-23 04:44 | XMS REPORT | Continuity of Care Document ---
Author Author [facility] Address [facility] [address] [place] [address] Phone Unavailable Support Name Relationship Address Phone THIERRY LEYVA MD Caregiver [address] [place] [address] Douglas Braga MD Caregiver [address] [place] [address] AZUL BARBER Next Of Kin [address] [place] [address] Insurance Providers Payer Name Policy Number Subscriber Name Relationship Self Pay Insurance Mimi Mendez Self / Same As Patient Advance Directives Directive Response Recorded Date/Time Do you have an Advanced Directive? No 01/14/10 6:17am Advance Directives No 10/28/12 2:33pm Living Will No 10/28/12 2:33pm Health Care Proxy No 09/25/14 8:42am Power of Equipment Service Engineer for Health Care No 10/28/12 2:33pm Organ, Tissue, or Eye Donor No 10/28/12 2:33pm Do you have a signed organ donor card? No 01/14/10 6:17am Problems Medical Problems Problem Onset Date Status Dermatitis Unknown Active sprain of hand Unknown Active uncontrolled hypertension Unknown Active Ankle sprain Unknown Active Medications Medication Dose Route Sig Days/Qty Instructions Order Date Discontinued Date Status Acetaminophen/Hydrocodone Bitart 1 Tab PO EVERY 4 HRS NEEDED PAIN 15 Qty 01/14/10 10/28/12 Discontinued Methylprednisolone 4 Mg PO Take as directed 21 Qty 02/10/10 10/28/12 Discontinued Albuterol NEEDED 10/28/12 09/25/14 Discontinued Promethazine HCl 25 Mg PO EVERY 4-6 HRS NEEDED NAUSEA 10 Qty 09/25/14 Discontinued Prednisone 20 Mg PO DAILY 5 Qty 03/03/13 09/25/14 Discontinued [proair] 2 Puff INH NEEDED 03/03/13 09/25/14 Discontinued Acetaminophen/ Codeine #3 Tab* 1 Ea PO EVERY 4-6 HOURS For PAIN 10 Qty 05/16/13 09/25/14 Discontinued Diclofenac Sodium (Voltaren 75MG*) 75 Mg PO TWICE A DAY For PAIN 30 Qty 05/16/13 09/25/14 Discontinued Butalb/Acetaminophen/Caffeine 1 Tab PO TWICE DAILY NEEDED 4 Qty 09/25/14 Discontinued Naproxen 500 Mg PO TWICE A DAY PRN PAIN 20 Qty 11/28/13 09/25/14 Discontinued Acetaminophen/Hydrocodone Bitart (Lortab 5-325*) 1 Ea PO EVERY 4-6 HRS NEEDED PAIN PRN PAIN 5 Qty 11/28/13 09/25/14 Discontinued Lisinopril (Zestril 20 Mg Tab*) 20 Mg PO DAILY 09/25/14 Active Acetaminophen Mg PO NEEDED 09/25/14 Active Meloxicam 15 Mg PO DAILY 30 Qty 09/25/14 Active Social History Social History Problem Response Recorded Date/Time Smoking Status Current every day smoker 10/28/2012 3:25pm Tobacco Use Cigarettes 10/28/2012 3:25pm Query Response Start Date Stop Date Smoking Status Current every day smoker Hospital Discharge Instructions No hospital discharge instructions. Plan of Care No plan of care. Functional Status Query Response Date Recorded [place] Coma Scale Total 15 September 25, 2014 8:50am Patient Behavior Cooperative September 25, 2014 8:50am Allergies, Adverse Reactions, Alerts Allergen Type Severity Reaction Status Last Updated NO KNOWN ALLERGIES Active 09/25/14 Immunizations Name Given Type Hx Diphtheria, Pertussis, Tetanus Vaccination Up To Date Historical Hx Influenza Vaccination No Historical Hx Pneumococcal Vaccination No Historical Vital Signs Acute Vital Signs Vital Response Date/Time Temperature (Fahrenheit) 97.8 degrees F (97.6 - 99.5) Temperature Source Temporal Artery Pulse Rate (adult) 93 bpm (60 - 90) Respiratory Rate 16 bpm (12 - 24) Blood Pressure 141/86 mm Hg O2 Sat by Pulse Oximetry 100 % (90 - 100) Oxygen Delivery Method Pain Intensity 5 Pain Location Body Site Modifier Pain Description Height 5 ft 4 in Weight 125 lb Body Mass Index 21.0 kg/m^2 Results Test Source Date Result Interp. Ref. Range Comments Alanine Aminotransferase (ALT/SGPT) November 16, 2013 12:40pm 66 U/L N 12- 78 Albumin November 16, 2013 12:40pm 3.4 gm/dL N 3.4-5.0 Amylase Level November 16, 2013 12:40pm 27 U/L N 25-115 Aspartate Amino Transf (AST/SGOT) November 16, 2013 12:40pm 73 U/L H 15-37 Barbiturates November 16, 2013 3:15pm Negative - Basophils # (Auto) November 16, 2013 12:40pm 0.1 K/uL N 0.0-0.2 Basophils (%) (Auto) November 16, 2013 12:40pm 0.9 % N 0.0-1.0 Blood Urea Nitrogen November 16, 2013 12:40pm 3 mg/dL L 7-18 Calcium Level November 16, 2013 12:40pm 8.6 mg/dL L 8.8-10.5 Carbon Dioxide Level November 16, 2013 12:40pm 22.9 mEq/L N 21-32 Chloride Level November 16, 2013 12:40pm 99 mEq/L N 98-107 Creatinine November 16, 2013 12:40pm 0.7 mg/dL N 0.6-1.0 Eosinophils # (Auto) November 16, 2013 12:40pm 0.0 K/uL N 0.0-0.7 Eosinophils (%) (Auto) November 16, 2013 12:40pm 0.1 % N 0.0-2.0 Ethyl Alcohol Level October 28, 2012 3:15pm 52.0 mg/dL - Glomerular Filtration Rate Calc November 16, 2013 12:40pm 98.5 mL/min N 60.0-128.0 Hematocrit November 16, 2013 12:40pm 46.0 % N 37.0-47.0 Hemoglobin November 16, 2013 12:40pm 15.3 gm/dL N 12.0-16.0 Lipase November 16, 2013 12:40pm 105 U/L N 65-230 Lymphocytes # (Auto) November 16, 2013 12:40pm 0.8 K/uL L 1.2-3.4 Lymphocytes (%) (Auto) November 16, 2013 12:40pm 10.2 % L 20.5-51.1 Magnesium Level November 16, 2013 12:40pm 1.7 mg/dL L 1.8-2.4 Mean Corpuscular Hemoglobin November 16, 2013 12:40pm 29.9 pg N 27.0-31.0 Mean Corpuscular Hemoglobin Concent November 16, 2013 12:40pm 33.4 g/dL N 30.0-37.0 Mean Corpuscular Volume November 16, 2013 12:40pm 89.6 fL N 81.0-99.0 Mean Platelet Volume November 16, 2013 12:40pm 5.9 fL L 7.4-10.4 Monocytes # (Auto) November 16, 2013 12:40pm 0.7 K/uL H 0.1-0.6 Monocytes (%) (Auto) November 16, 2013 12:40pm 8.6 % N 1.7-9.3 Neutrophils # (Auto) November 16, 2013 12:40pm 6.1 K/uL N 2.0-6.9 Neutrophils (%) (Auto) November 16, 2013 12:40pm 80.2 % H 42.2-75.2 Phencyclidine (PCP) Screen November 16, 2013 3:15pm Negative - Platelet Count November 16, 2013 12:40pm 246 K/uL N 130-400 Potassium Level November 16, 2013 12:40pm 3.2 mEq/L L 3.5-5.0 Random Glucose November 16, 2013 12:40pm 99 mg/dL N 70-110 Red Blood Count November 16, 2013 12:40pm 5.13 M/uL N 4.20-5.40 Red Cell Distribution Width November 16, 2013 12:40pm 11.3 % L 11.5-14.5 Sodium Level November 16, 2013 12:40pm 135 mEq/L L 136-145 Total Alkaline Phosphatase November 16, 2013 12:40pm 79 U/L N 50-136 Total Bilirubin November 16, 2013 12:40pm 0.50 mg/dL N 0.00-1.00 Total Protein November 16, 2013 12:40pm 7.2 gm/dL N 6.4-8.2 Tricyclic Antidepressants November 16, 2013 3:15pm Negative - Urine Amorphous Sediment January 26, 2013 11:00am 2+ H - Urine Amphetamines Screen November 16, 2013 4:05pm Negative ng/mL - Urine Appearance November 16, 2013 3:15pm Clear - Urine Bacteria November 16, 2013 3:15pm Trace - Urine Barbiturates Screen November 16, 2013 4:05pm Negative ng/mL - Urine Benzodiazepines Screen November 16, 2013 4:05pm Negative ng/mL - Urine Bilirubin November 16, 2013 3:15pm Negative - Urine Cannabinoids Screen November 16, 2013 4:05pm Positive H - Carboxy THC GC/MS Conf 170 ng/mL Cutoff=10 01 Urine Cocaine Level November 16, 2013 3:15pm Negative - Urine Cocaine Screen November 16, 2013 4:05pm Negative ng/mL - Urine Color November 16, 2013 3:15pm Yellow - Urine Glucose (UA) November 16, 2013 3:15pm Negative mg/dL - Urine HCG, Qualitative November 16, 2013 3:15pm Negative - Urine Ketones November 16, 2013 3:15pm 15 mg/dL - Urine Leukocyte Esterase November 16, 2013 3:15pm Negative - Urine Marijuana (THC) Screen November 16, 2013 3:15pm Positive - Urine Methamphetamines Screen November 16, 2013 3:15pm Negative - Urine Mucus October 28, 2012 2:59pm Few H - Urine Nitrate November 16, 2013 3:15pm Negative - Urine Occult Blood November 16, 2013 3:15pm 1+ (small) H - Urine Opiates Screen November 16, 2013 4:05pm Negative ng/mL - Opiate test includes Codeine and Morphine only. Urine Phencyclidine Screen November 16, 2013 4:05pm Negative ng/mL - Performed at: - [facility] [id number] Manager Laundry: Lissette Arias MD, Phone: [phone] Urine Protein November 16, 2013 3:15pm Negative mg/dL - Urine RBC November 16, 2013 3:15pm 0-3 /hpf - Urine Specific [place] November 16, 2013 3:15pm < 1.005 L 1.010-1.025 Urine Squamous Epithelial Cells November 16, 2013 3:15pm 10-15 /hpf - Urine Urobilinogen November 16, 2013 3:15pm 0.2 E.U./dL - Urine WBC November 16, 2013 3:15pm Negative /hpf - Urine pH November 16, 2013 3:15pm - White Blood Count November 16, 2013 12:40pm 7.6 K/uL N 4.8-10.8 Blood Culture Blood November 16, 2013 12:40pm NO GROWTH AFTER 5 DAYS Urine Culture Urine,Clean Catch November 16, 2013 3:15pm Procedures Procedure Status Date Provider(s) X-ray of right ankle, three or more views completed 09/25/14 THIERRY LEYVA MD Encounters Encounter Location Date/Time Departed Emergency Room [facility] 09/25/14 8:45am Recent Diagnosis
--- OUTSIDE RECORDS SUMMARY | 2018-02-23 04:44 | XMS REPORT | Continuity of Care Document ---
Author Author [facility] Organization [facility] Address [facility] [address] [place] [address] Phone Unavailable Support Name Relationship Address Phone RHYS ALEXIS DO Caregiver [address] [place] [address] Douglas Braga MD Caregiver [address] [place] [address] AZUL BARBER Next Of Kin [address] [place] [address] Insurance Providers Payer Name Policy Number Subscriber Name Relationship Self Pay Insurance Mimi Mendez Self / Same As Patient Advance Directives Directive Response Recorded Date/Time Do you have an Advanced Directive? No 01/14/10 6:17am Advance Directives No 10/28/12 2:33pm Living Will No 10/28/12 2:33pm Health Care Proxy No 12/18/14 3:26pm Power of Network Operations Manager for Health Care No 10/28/12 2:33pm Organ, Tissue, or Eye Donor No 10/28/12 2:33pm Do you have a signed organ donor card? No 01/14/10 6:17am Problems Medical Problems Problem Onset Date Status Dermatitis Unknown Active sprain of hand Unknown Active uncontrolled hypertension Unknown Active Ankle sprain Unknown Active Acute chest wall pain Unknown Active Hypertension Unknown Active Medications Medication Dose Route Sig [...] Mg PO DAILY 30 Qty 09/25/14 Active Lisinopril (Zestril 20 Mg Tab*) 20 Mg PO DAILY 30 Qty 12/18/14 Active Acetaminophen/Hydrocodone Bitart (Lortab 5-325*) 1 Each PO EVERY 6 HRS NEEDED FOR PAIN 10 Qty 12/18/14 Active Social History Social History Problem Response Recorded Date/Time Smoking Status Current every day smoker 10/28/2012 3:25pm Tobacco Use Cigarettes 10/28/2012 3:25pm Query Response Start Date Stop Date Smoking Status Current every day smoker Hospital Discharge Instructions No hospital discharge instructions. Plan of Care No plan of care. Functional Status Query Response Date Recorded [place] Coma Scale Total 15 December 18, 2014 5:16pm Patient Behavior Cooperative Appropriate December 18, 2014 5:16pm Allergies, Adverse Reactions, Alerts Allergen Type Severity Reaction Status Last Updated NO KNOWN ALLERGIES Active 09/25/14 Immunizations Name Given Type Hx Diphtheria, Pertussis, Tetanus Vaccination Up To Date Historical Hx Influenza Vaccination No Historical Hx Pneumococcal Vaccination No Historical Vital Signs Acute Vital Signs Vital Response Date/Time Temperature (Fahrenheit) 99.2 degrees F (97.6 - 99.5) Temperature Source Temporal Artery Pulse Rate (adult) 86 bpm (60 - 90) Respiratory Rate 20 bpm (12 - 24) Blood Pressure 157/110 mm Hg O2 Sat by Pulse Oximetry 98 % (90 - 100) Oxygen Delivery Method Pain Intensity 5 Pain Location Body Site Modifier Pain Description Pain Duration > 6 Hours Height 5 ft 4.25 in Weight 125 lb Body Mass Index [...] 2013 3:15pm Negative - Basophils # (Auto) December 18, 2014 3:30pm 0.0 K/uL N 0.0-0.2 Basophils (%) (Auto) December 18, 2014 3:30pm 0.3 % N 0.0-1.0 Blood Urea Nitrogen December 18, 2014 3:30pm 8 mg/dL N 7-18 Calcium Level December 18, 2014 3:30pm 8.6 mg/dL L 8.8-10.5 Carbon Dioxide Level December 18, 2014 3:30pm 26.3 mEq/L N 21-32 Chloride Level December 18, 2014 3:30pm 100 mEq/L N 98-107 Creatine Kinase MB December 18, 2014 3:30pm 1.2 NG/ML N 0-3.6 Creatinine December 18, 2014 3:30pm 0.7 mg/dL N 0.6-1.0 Eosinophils # (Auto) December 18, 2014 3:30pm 0.1 K/uL N 0.0-0.7 Eosinophils (%) (Auto) December 18, 2014 3:30pm 1.5 % N 0-3 Ethyl Alcohol Level October 28, 2012 3:15pm 52.0 mg/dL - Glomerular Filtration Rate Calc December 18, 2014 3:30pm 98.0 mL/min N - 128.0 Hematocrit December 18, 2014 3:30pm 44.7 % N 37.0-47.0 Hemoglobin December 18, 2014 3:30pm 15.1 gm/dL N 12.0-16.0 Lipase November 16, 2013 12:40pm 105 U/L N 65-230 Lymphocytes # (Auto) December 18, 2014 3:30pm 1.7 K/uL N 1.2-3.4 Lymphocytes (%) (Auto) December 18, 2014 3:30pm 17.2 % L 20.5-51.1 Magnesium Level November 16, 2013 12:40pm 1.7 mg/dL L 1.8-2.4 Mean Corpuscular Hemoglobin December 18, 2014 3:30pm 31.9 pg H 27.0-31.0 Mean Corpuscular Hemoglobin Concent December 18, 2014 3:30pm 33.7 g/dL N 30.0-37.0 Mean Corpuscular Volume December 18, 2014 3:30pm 94.7 fL N 81.0-99.0 Mean Platelet Volume December 18, 2014 3:30pm 7.5 fL N 7.4-10.4 Monocytes # (Auto) December 18, 2014 3:30pm 0.4 K/uL N 0.1-0.6 Monocytes (%) (Auto) December 18, 2014 3:30pm 4.2 % N 1.7-9.3 Myoglobin December 18, 2014 3:30pm 27.0 NG/ML N 10.5-92.5 Neutrophils # (Auto) December 18, 2014 3:30pm 7.4 K/uL H 2.0-6.9 Neutrophils (%) (Auto) December 18, 2014 3:30pm 76.7 % H 42.2-75.2 Phencyclidine (PCP) Screen November 16, 2013 3:15pm Negative - Platelet Count December 18, 2014 3:30pm 356 K/uL N 130-400 Potassium Level December 18, 2014 3:30pm 3.8 mEq/L N 3.5-5.0 Random Glucose December 18, 2014 3:30pm 77 mg/dL N 70-110 Red Blood Count December 18, 2014 3:30pm 4.73 M/uL N 4.20-5.40 Red Cell Distribution Width December 18, 2014 3:30pm 13.7 % N 11.5-14.5 Sodium Level December 18, 2014 3:30pm 136 mEq/L N 136-145 Total Alkaline Phosphatase November 16, 2013 12:40pm 79 U/L N 50-136 Total Bilirubin November 16, 2013 12:40pm 0.50 mg/dL N 0.00-1.00 Total Creatine Kinase December 18, 2014 3:30pm 187 U/L N 26-192 Total Protein November 16, 2013 12:40pm 7.2 gm/dL N 6.4-8.2 Tricyclic Antidepressants November 16, 2013 3:15pm Negative - Troponin I December 18, 2014 3:30pm 0.0 NG/ML N 0.0-0.2 Urine Amorphous Sediment January 26, 2013 11:00am [...] 4:05pm Negative ng/mL - Performed at: - [facility] [id number] [place], [place] [id number] Oil Truck Driver: Lissette Arias MD, Phone: [phone] Urine Protein November 16, 2013 3:15pm Negative mg/dL - Urine RBC November 16, 2013 3:15pm 0-3 /hpf - Urine Specific [place] November 16, 2013 3:15pm < 1.005 L 1.010-1.025 Urine Squamous Epithelial Cells November 16, 2013 3:15pm 10-15 /hpf - Urine Urobilinogen November 16, 2013 3:15pm 0.2 E.U./dL - Urine WBC November 16, 2013 3:15pm Negative /hpf - Urine pH November 16, 2013 3:15pm - White Blood Count December 18, 2014 3:30pm 9.6 K/uL N 4.8-10.8 Blood Culture Blood November 16, 2013 12:40pm NO GROWTH AFTER 5 DAYS Urine Culture Urine,Clean Catch November 16, 2013 3:15pm Procedures Procedure Status Date Provider(s) X-ray of right ankle, three or more views completed 09/25/14 THIERRY LEYVA MD X-ray of chest, PA and lateral views completed 12/18/14 RHYS ALEXIS DO Encounters Encounter Location Date/Time Departed Emergency Room [facility] 12/18/14 3:22pm Departed Emergency Room [facility] 09/25/14 8:45am Recent Diagnosis
[2018-02-23] MEDS ORDERED: RX-NEO/POLYB/HC OTIC (CORTISPORIN) SUSP 10 ML BTL OT STA (04:51)
[2018-02-23] MEDS ORDERED: NEOM10DR42 OT (04:55)
[2018-02-23] MEDS ORDERED: KETOROLAC 60 MG/2 ML VIAL ONE (04:55)
[2018-02-23] MEDS ORDERED: CEFD300C3 PO (04:55)
[2018-02-23] MEDS ORDERED: RX-NEO/POLYB/HC OTIC (CORTISPORIN) SUSP 10 ML BTL ONE (04:55)
--- NOTE | 2018-02-23 04:55 | ED EENT ---
History of Present Illness General Chief Complaint: Ear Problems Stated Complaint: EAR PAIN Nursing Triage Note: PATIENT HERE FOR EAR PAIN AFTER BEING DIAGNOSED WITH AN EAR INFECTION BY [facility] 1 WEEK AGO. SHE HAS BEEN TAKING AMOXICILLIN BUT STATES THE PAIN "WOKE HER UP" THIS MORNING AND IBUPROFEN IS NOT HELPING. Past [id number] Hx Patient Social History Alcohol Use: Denies Use Recreational Drug Use: No Smoking Status: Current Everyday Smoker Type Used: Cigarettes 2nd Hand Smoke Exposure: Yes Recent Foreign Travel: No Contact w/Someone Who Travel: No Recent Infectious Disease Expo: No Recent Hopitalizations: No Physical Abuse: No Sexual Abuse: No Seasonal Allergies Seasonal Allergies: No Past Medical History Surgeries: Yes (d&c) Respiratory: No Cardiac: No Neurological: No Genitourinary: No Gastrointestinal: No Musculoskeletal: No Endocrine: No HEENT: No Cancer: No Psychosocial: No Nursing Suicide Risk Score: 0 Blood Disorders: No Physical Exam Vital Signs Vital Signs - First Documented 02/23/18 04:35 Temp 97.0 Pulse 95 Resp 22 B/P (MAP) 118/101 (107) Pulse Ox 100 Height, Weight, BMI Height: 5'4.00" Weight: 128lbs. 0oz. 58.517510up; BMI Method:Stated Progress/Results/Core Measures Results/Orders Vital Signs/I&O 02/23/18 04:35 Temp 97.0 Pulse 95 Resp 22 B/P (MAP) 118/101 (107) Pulse Ox 100 Blood Pressure Mean: 107 Departure Impression Primary Impression: Right otitis externa Disposition: 01 HOME, SELF-CARE Condition: Stable Departure-Patient Inst. Referrals: [facility] (PCP/Family) Primary Care Physician Patient Instructions: Outer Ear Infection (DC), How to Use Ear Drops Add. Discharge Instructions: TYLENOL NEEDED FOR PAIN FOLLOW UP WITH [facility] IN 2-3 DAYS IF NO BETTER All discharge instructions reviewed with patient and/or family. Voiced understanding. Scripts Cefdinir (Cefdinir) 300 Mg Capsule 300 MG PO BID, #20 CAP Prov: LAVELLE VICENTE DO 02/23/18 Neomycin/Polymyxin B Sulf/Hc (Zjfhhumo-Pulapszgq-Ye Ear Susp) 10 Ml Drops.susp 4 DROPS OT QID, #1 DROPS Prov: LAVELLE VICENTE DO 02/23/18 LAVELLE VICENTE DO Feb 23, 2018 04:55
[2018-02-23] MEDS ORDERED: KETOROLAC 60 MG/2 ML VIAL IM ONE (05:00)
[2018-02-23 05:03] VITALS: BP 118/101
== END 2018-02-23 05:03 | disposition home or self-care (01) ==
LOC: ER 04:33
DX: H60.91 Unspecified otitis externa, right ear (principal); F17.210 Nicotine dependence, cigarettes, uncomplicated
CPT/HCPCS: 96372; 99284

== ENCOUNTER → 2018-06-04 | Outpatient (CLI) | payer OTHER ==
[~2018-06-04] MED LIST: CEFD300C3 PO; NEOM10DR42 OT
--- NOTE | 2018-06-04 16:26 | Diagnostic Imaging Report ---
INDICATION: Right shoulder pain. AP, oblique, and transscapular views of the right shoulder are obtained. FINDINGS: No fracture or acute bony abnormality seen. There is no dislocation. Glenohumeral joint and AC joint appear unremarkable. IMPRESSION: Negative right shoulder. Dictated by: Dictated on workstation # [id number]
== END ==
LOC: RAD 14:52
PROVIDERS: ATTEND Nurse Practitioner Family
DX: M25.511 Pain in right shoulder (principal)
CPT/HCPCS: 73030

== ENCOUNTER → 2018-07-02 | Outpatient (CLI) | payer OTHER ==
[~2018-07-02] VITALS: Ht 162.6 cm; Wt 61.2 kg
[~2018-07-02] MED LIST changes: +GADOBUTROL 7.5 MMOL/7.5 ML (GADAVIST) VIAL IV ONE; +IOHEXOL 240 MGI/ML 20 ML (OMNIPAQUE) VIAL IV ONE; +LIDOCAINE 1% INJ 20 ML 20 ML VIAL INJ ONE
--- NOTE | 2018-07-02 10:33 | Diagnostic Imaging Report ---
INDICATION: Shoulder pain. PROCEDURE: The patient was placed on the table in the supine position. The patient's shoulder was prepped and draped in the usual sterile fashion. Local anesthesia was obtained with 2% lidocaine. A needle was advanced into the glenohumeral joint under fluoroscopic control. A mixture of saline, Omnipaque and gadolinium was then infused. The needle was removed and adequate hemostasis was obtained. The patient tolerated the procedure well and left the department in stable condition. IMPRESSION: Successful shoulder injection prior to MRI, as described above. Dictated by: Dictated on workstation # [id number]
--- NOTE | 2018-07-02 11:17 | Diagnostic Imaging Report ---
EXAMINATION: Magnetic resonance imaging of the right shoulder with intra-articular contrast. DATE: July 02, 2018. COMPARISON: Right shoulder radiographs June 04, 2018. HISTORY: 42-year-old female, right shoulder pain. TECHNIQUE: Magnetic Resonance Imaging sequences were performed of the shoulder following the intra-articular administration of contrast. FINDINGS: ROTATOR CUFF, LIGAMENTS, TENDONS, AND MUSCLES: The supraspinatus, infraspinatus, teres minor, and subscapularis tendons and muscles are intact. There is normal rotator cuff muscle bulk and signal. There is a small amount of contrast within the subscapularis muscle which is likely injection related. LONG HEAD OF BICEPS: The biceps labral attachment and long head of the biceps tendon is intact. The long head of the biceps tendon is normally positioned within the bicipital groove. GLENOHUMERAL JOINT: The humeral head is well positioned relative to the glenoid. The labrum is intact. There is no identified paralabral cyst. The articular cartilage is grossly intact. There is no intra-articular body or prominent synovitis. ACROMIOCLAVICULAR JOINT: The acromioclavicular joint is normally aligned. The coracoclavicular and coracoacromial ligaments are intact. There are no degenerative changes of the acromioclavicular joint. BONE: The bones all have normal configuration. The bone marrow signal is within normal limits. Specifically, negative for fracture, osteomyelitis, osteonecrosis, or marrow replacing process. BURSAE AND SOFT TISSUES: The bursae and soft tissue surrounding the shoulder are unremarkable. IMPRESSION: 1. Normal MRI arthrogram of right shoulder. Dictated by: Dictated on workstation # [id number]
== END ==
LOC: RAD 09:19
PROVIDERS: ATTEND Orthopaedic Surgery
DX: S43.431A Superior glenoid labrum lesion of right shoulder, initial encounter (principal)
CPT/HCPCS: 23350; 73040; 73222

== ENCOUNTER → 2019-07-01 | Outpatient (CLI) | payer OTHER ==
[~2019-07-01] MED LIST changes: -GADOBUTROL 7.5 MMOL/7.5 ML (GADAVIST) VIAL IV ONE; -IOHEXOL 240 MGI/ML 20 ML (OMNIPAQUE) VIAL IV ONE; -LIDOCAINE 1% INJ 20 ML 20 ML VIAL INJ ONE
--- NOTE | 2019-07-04 09:21 | Diagnostic Imaging Report ---
INDICATION: Routine screening. No prior mammograms are available for comparison. 2-D and 3-D bilateral screening mammography was performed with CAD. The current study was also evaluated with a Computer Aided Detection (CAD) system. 3-D tomosynthesis was also performed and reviewed. Scattered fibroglandular densities are identified bilaterally. No mass or malignant appearing microcalcifications are seen. The axillae are unremarkable. IMPRESSION: No mammographic features suspicious for malignancy are identified. ACR BI-RADS Category 1: Negative. Result letter will be mailed to the patient. Note: At least 10% of breast cancer is not imaged by mammography. Dictated by: Dictated on workstation # [id number]
== END ==
LOC: RAD 10:13
PROVIDERS: ATTEND Family Medicine
DX: Z12.31 Encounter for screening mammogram for malignant neoplasm of breast (principal)
CPT/HCPCS: 77067

== ENCOUNTER 2019-12-02 18:11 | Emergency (ER) | payer OTHER ==
[~2019-12-02] VITALS: Ht 162 cm; Wt 70.0 kg
[2019-12-02] MEDS ORDERED: TETANUS,DIPTH,PERTUSS P/F (BOOSTRIX) 0.5 ML VIAL IM ONE (18:45)
[2019-12-02] MEDS ORDERED: oxyCODONE/APAP 5/325MG (PERCOCET 5) TABLET PO ONE (18:45)
[2019-12-02] MEDS ORDERED: fentaNYL INJECTION 100 MCG/2 ML AMP IVP ONE (18:45)
--- NOTE | 2019-12-02 19:12 | ED Upper Extremity ---
General Chief Complaint: Upper Extremity Stated Complaint: WORK INJ RIGHT HAND Nursing Triage Note: Patient states around 1740 she was working at [employer]. 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 Patient states she went to free a trashbag when the machine pulled her hand into the roller. Nursing Sepsis Screen: No Definite Risk Source: patient Exam Limitations: no limitations History of Present Illness Date Seen by Provider: December 02, 2019 Time Seen by Provider: 18:30 Initial Comments This 44-year-old woman presents to the emergency room with injury to the right hand. The injury occurred just prior to arrival at [facility] [employer]. She describes her hand being caught in a bag clamp and being pulled into some type of a roller causing abrasions and pork and/or crush type injury to the right hand. She has pain up into the forearm region but not past the mid forearm. She does not recall when her last tetanus immunization was. She retains radial pulse as well as capillary refill and sensation in all of her fingertips Onset: just prior to arrival Allergies and Home Medications Allergies Coded Allergies: No Known Drug Allergies (Unverified , 02/23/18) Home Medications Cefdinir 300 Mg Capsule, 300 MG PO BID Prescribed by: LAVELLE VICENTE on 02/23/18454 Docusate Sodium 100 Mg Capsule, 100 MG PO DAILY PRN for CONSTIPATION-1ST LINE Prescribed by: MATTHIEU DELEON on 12/02/192033 Neomycin/Polymyxin B Sulf/Hc 10 Ml Drops.susp, 4 DROPS OT QID Prescribed by: LAVELLE VICENTE on 02/23/18454 Oxycodone HCl/Acetaminophen 1 Each Tablet, 1-2 TAB PO Q4H PRN for PAIN-MODERATE Prescribed by: MATTHIEU DELEON on 12/02/192032 Sulfamethoxazole/Trimethoprim 1 Each Tablet, 1 EACH PO BID Prescribed by: MATTHIEU DELEON on 12/02/192031 Patient Home Medication List Home Medication List Reviewed: Yes Review of Systems Constitutional: no symptoms reported EENTM: no symptoms reported Respiratory: no symptoms reported Cardiovascular: no symptoms reported Gastrointestinal: no symptoms reported Genitourinary: no symptoms reported : No Musculoskeletal: see HPI Skin: see HPI Psychiatric/Neurological: No Symptoms Reported Past Zupvwvb-Jedxhr-Yrsdtz Hx Past Med/Social Hx: Reviewed Nursing Past Med/Soc Hx Patient Social History Alcohol Use: Denies Use Recreational Drug Use: No Type Used: Cigarettes 2nd Hand Smoke Exposure: Yes Recent Foreign Travel: No Contact w/Someone Who Travel: No Recent Infectious Disease Expo: No Recent Hopitalizations: No Seasonal Allergies Seasonal Allergies: No Past Medical History Surgeries: Yes (D&C) Respiratory: No Cardiac: No Neurological: No : No Genitourinary: No Gastrointestinal: No Musculoskeletal: No Endocrine: No HEENT: No Cancer: No Psychosocial: No Integumentary: No Blood Disorders: No Physical Exam Vital Signs Vital Signs - First Documented 12/02/19 18:48 Temp 36.6 Pulse 85 Resp 14 B/P (MAP) 141/84 (103) Pulse Ox 99 O2 Delivery Room Air Capillary Refill : Less Than 3 Seconds Height, Weight, BMI Height: 5'4.00" Weight: 135lbs. 0.0oz. 61.218292sv; 26.00 BMI Method:Stated General Appearance: WD/WN, moderate distress HEENT: PERRL/EOMI, normal ENT inspection Neck: normal inspection Cardiovascular: regular rate, rhythm, no edema, no murmur Respiratory: lungs clear, normal breath sounds, no respiratory distress Shoulder: normal inspection, non-tender, no evidence of injury Elbow/Forearm: non-tender (no tenderness to the elbow), bone tenderness (mild in the distal forearm) Wrist: Yes bone tenderness, Yes limited ROM Hand: Right (capillary refill and sensation intact in all fingers. 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, no motor/sensory deficits, alert, normal mood/affect, oriented x 3 Skin: normal color, warm/dry, other (abrasions and ecchymosis to the right hand) Progress/Results/Core Measures Results/Orders My Orders Orders - MATTHIEU GARRETT MD Fentanyl Injection (Sublimaze Injection (12/02/19 18:45) Ed Iv/Invasive Line Start (12/02/19 18:36) Dipht,Pertuss(Acell),Tet Adult (Boostrix (12/02/19 18:45) Oxycodone/Apap 5/325mg Tablet (Percocet (12/02/19 18:45) Forearm, Right, 2 Views (12/02/19 18:38) Hand, Right, 3 Views (12/02/19 18:38) Morphine Injection (Morphine Injection (12/02/19 19:45) Sodium Bicarbonate 8.4% Vial (Sodium Bic (12/02/19 20:00) Rx-Oxycodone/Apap 5-325 Mg (Rx-Percocet (12/02/19 20:30) Sulfamethoxazole/Trimet Ds Tab (Bactrim (12/02/19 20:30) Medications Given in ED Current Medications Medications Dose Ordered Sig/Keanu Route Start Time Stop Time Status Last Admin Dose Admin Diphtheria/ Tetanus/Acell Pertussis 0.5 ml ONCE ONCE IM 12/02/19 18:45 12/02/19 18:46 DC 12/02/19 19:02 0.5 ML Fentanyl Citrate 100 mcg ONCE ONCE IVP 12/02/19 18:45 12/02/19 18:46 DC 12/02/19 19:02 100 MCG Oxycodone/ Acetaminophen 1 ea Q4H PRN PO 12/02/19 20:30 12/02/19 21:23 DC 12/02/19 20:48 1 EA Oxycodone/ Acetaminophen 1 tab ONCE ONCE PO 12/02/19 18:45 12/02/19 18:46 DC 12/02/19 19:01 1 TAB Sodium Bicarbonate 50 meq ONCE ONCE IV 12/02/19 20:00 12/02/19 20:01 DC 12/02/19 20:14 50 MEQ Trimethoprim/ Sulfamethoxazole 1 ea ONCE ONCE PO 12/02/19 20:30 12/02/19 20:31 DC 12/02/19 20:50 1 EA Vital Signs/I&O 12/02/19 12/02/19 18:48 21:07 Temp 36.6 Pulse 85 86 Resp 14 14 B/P (MAP) 141/84 (103) 125/79 Pulse Ox 99 98 O2 Delivery Room Air Room Air Blood Pressure Mean: 103 Progress Progress Note #1: Time: 19:11 Progress Note IV was established and patient was treated with fentanyl 100 g and Percocet orally. X-rays are pending. Tetanus immunization was administered and occupational health was notified. Progress Note #2: Progress Note X-rays revealed numerous fractures of the hand and distal radius. Case was discussed with Dr. Nice who recommended referral to a hand surgeon. Case was discussed with Dr. Gagnon who requested splinting and follow-up on Thursday. Splint was placed from the fingertips through the forearm. A fingertip splint was placed on the thumb for the distal phalanx fracture. A local injection of buffered lidocaine was administered at the distal fifth metacarpal and the proximal fifth phalanx for additional anesthesia. Displacement and angulation of the fifth metacarpal and finger were firm. Patient was not tolerating attempts at reducing. Finger was partially reduced with application of the splint. Patient was extremely tender to the touch, even after pain medications. Prophylactic antibiotics were administered in lieu of scrubbing abrasions. Patient was additionally treated with IV morphine before splinting and dispensed with a take-home bottle of Percocet. Diagnostic Imaging Diagonstic Imaging: Xray Plain Films/CT/US/NM/MRI: forearm Comments Forearm x-rays viewed by me and report reviewed. See report below: NAME: STEVE PAEZ [facility] REC#: [id number] PT STATUS: REG ER : 1975 PHYSICIAN: MATTHIEU GARRETT MD ADMIT DATE: 12/02/19/ER Signed Date of Exam:12/02/19 FOREARM, RIGHT, 2 VIEWS INDICATION: Hand caught in machinery at work. FINDINGS: Alignment of the radius and ulna appear unremarkable. There are nondisplaced fracture lines demonstrated within the distal radius. No ulnar fractures evident. Fractures of the 5th metacarpal and proximal phalanx of the 5th digit also noted. IMPRESSION: 1. Nondisplaced distal radial fracture with fracture lines appearing to involve the articular surface. No ulnar fracture evident. Alignment normal. 5th metacarpal and 5th proximal phalanx fractures are also present. Dictated by: Dictated on workstation # [id number] Dict: 12/02/191916 Trans: 12/02/192027 [facility] [id number] Interpreted by: IRVIN BEAR MD Electronically signed by: IRVIN BEAR MD 12/02/192027 Diagonstic Imaging: Xray Plain Films/CT/US/NM/MRI: other (right hand) Comments Hand x-rays viewed by me and report reviewed. X-ray was discussed with the radiologist. In addition to the report below, we felt there was also likely a fracture at the proximal fourth metacarpal and the distal phalanx of the thumb. Report does not reflect those injuries. See report below: NAME: STEVE PAEZ [facility] REC#: [id number] PT STATUS: REG ER : 1975 PHYSICIAN: MATTHIEU GARRETT MD ADMIT DATE: 12/02/19/ER Signed Date of Exam:12/02/19 HAND, RIGHT, 3 VIEWS CLINICAL HISTORY: Hand got caught in machinery at work. COMPARISON: None. TECHNIQUE: 3 views of the right hand. FINDINGS: Acute mildly displaced transverse fracture seen involving the distal aspect of the right 5th metacarpal and proximal aspect of the right 5th proximal phalanx. No evidence of intra-articular extension is seen of the fracture. No other fractures are seen in the right hand. Degenerative changes are present in the hand with joint space narrowing and marginal osteophytes. Soft tissue edema is seen surrounding the right 5th digit. IMPRESSION: 1. Acute mildly displaced transverse fractures involving the distal aspect of the right 5th metacarpal and proximal aspect of the right 5th proximal phalanx. No evidence of intra-articular extension. Dictated by: Dictated on workstation # [id number] Dict: 12/02/191916 Trans: 12/02/191923 [facility] [id number] Interpreted by: MEENA SANCHEZ DO Electronically signed by: MEENA SANCHEZ DO 12/02/191923 Reviewed: Reviewed by Me, Discussed w/Radiologist Departure Impression Primary Impression: Fracture of hand Qualified Codes: S62.91XA - Unspecified fracture of right wrist and hand, initial encounter for closed fracture Additional Impressions: Abrasion hand Distal radius fracture, right Qualified Codes: S52.501A - Unspecified fracture of the lower end of right radius, initial encounter for closed fracture Disposition: 01 HOME, SELF-CARE Condition: Improved Departure-Patient Inst. Decision time for Depature: 20:31 Referrals: NO,LOCAL PHYSICIAN (PCP) Primary Care Physician JULIET GUZMÁN APRN (Family) Primary Care Physician DAISY GAGNON DO Patient Instructions: Hand Fracture, SPLINT CARE Add. Discharge Instructions: Use the sling for comfort. Keep the splint clean and dry. Use your pain medication and antibiotic as prescribed. Contact occupational health and Dr. Gagnon first thing on Thursday morning to arrange follow-up. Elevate your hand is much as possible to the level of your heart. You may also ice in 20 minute intervals to help reduce pain and swelling. Opioid pain medications may cause constipation. You may use Colace daily to help prevent and/or treat constipation. Return to care if you have any problems or concerns. All discharge instructions reviewed with patient and/or family. Voiced understanding. Scripts Docusate Sodium (Colace) 100 Mg Capsule 100 MG PO DAILY PRN for CONSTIPATION-1ST LINE, #30 CAP Prov: MATTHIEU GARRETT MD 12/02/19 Oxycodone HCl/Acetaminophen (Percocet 5-325 mg Tablet) 1 Each Tablet 1-2 TAB PO Q4H PRN for PAIN-MODERATE MDD 6, #30 TAB Prov: MATTHIEU GARRETT MD 12/02/19 Sulfamethoxazole/Trimethoprim (Bactrim Ds Tablet) 1 Each Tablet 1 EACH PO BID, #10 TAB Prov: MATTHIEU GARRETT MD 12/02/19 Copy Copies To 1: DAISY GAGNON JOSHUA T MD December 02, 2019 19:12
--- NOTE | 2019-12-02 19:22 | Diagnostic Imaging Report ---
INDICATION: Hand caught in machinery at work. FINDINGS: Alignment of the radius and ulna appear unremarkable. There are nondisplaced fracture lines demonstrated within the distal radius. No ulnar fractures evident. Fractures of the 5th metacarpal and proximal phalanx of the 5th digit also noted. IMPRESSION: 1. Nondisplaced distal radial fracture with fracture lines appearing to involve the articular surface. No ulnar fracture evident. Alignment normal. 5th metacarpal and 5th proximal phalanx fractures are also present. Dictated by: Dictated on workstation # [id number]
--- NOTE | 2019-12-02 19:24 | Diagnostic Imaging Report ---
CLINICAL HISTORY: Hand got caught in machinery at work. COMPARISON: None. TECHNIQUE: 3 views of the right hand. FINDINGS: Acute mildly displaced transverse fracture seen involving the distal aspect of the right 5th metacarpal and proximal aspect of the right 5th proximal phalanx. No evidence of intra-articular extension is seen of the fracture. No other fractures are seen in the right hand. Degenerative changes are present in the hand with joint space narrowing and marginal osteophytes. Soft tissue edema is seen surrounding the right 5th digit. IMPRESSION: 1. Acute mildly displaced transverse fractures involving the distal aspect of the right 5th metacarpal and proximal aspect of the right 5th proximal phalanx. No evidence of intra-articular extension. Dictated by: Dictated on workstation # [id number]
--- OUTSIDE RECORDS SUMMARY | 2019-12-02 19:35 | XMS REPORT ---
Author Author Mimi Lr Doctor Organization [facility] Address Unknown Phone Unavailable Care Team Providers Care Store Management Trainee Name Role Phone Migration, Doctor Unavailable Unavailable PROBLEMS Type Condition ICD9-CM Code [id number] Code Onset Dates Condition S tatus SNOMED Code Problem Chronic pain syndrome G89.4 Active 470189102 Problem Asthma J45.909 Active 313949097 Problem Psoriasis L40.9 Active 1189978 Problem Alcohol abuse F10.10 Active 090020 05 Problem Essential hypertension I10 Active 18786895 ALLERGIES No Information ENCOUNTERS Encounter Location Date Diagnosis [place] [address] [place] [id number] [place] [phone] Jun, [place] [address] [phone] Jun, Well woman exam Z01.419 ; As thma J45.909 and Risky sexual behavior Z72.51 [place] [address] [place] [id number] [place] [phone] Feb, Acute otitis externa of righ t ear, unspecified type H60.501 [facility] [id number] [place] [phone] Jan, Acute mucoid otitis media of right ear H65.111 [facility] [address] [id number] [place] [phone] Dec, Essential hypertension I10 a nd Chronic pain syndrome G89.4 [facility] [address] [place] [address] [id number] [place] [phone] 15 Aug, 2016 [facility] [address] [facility] [id number] [address] [place] [phone] 14 Aug, 2016 Dermatitis L30.9 ; Sebaceous cyst L72.3 ; Pain in right hand M79.641 and Pain of left hand M79.642 [facility] [address] [place] [phone] Jul, [facility] [address] [place] [address] [id number] [place] [id number] Jul, Encounter for dental examina tion Z01.20 [facility] [address] [facility] [id number] [address] [place] [phone] Jun, [facility] [address] [facility] [id number] [address] [place] [phone] Jun, [facility] [address] [facility] [id number] [address] [place] [phone] Jun, Dermatitis L30.9 [facility] [address] [place] [address] [id number] [place] [phone] Jun, [facility] [address] [place] [address] [id number] [place] [phone] May, [facility] [address] [place] [id number] [place] [address] May, Essential hypertension I10 [facility] [address] [place] [phone] May, Dermatitis L30.9 ; Essential hypertension I10 and Alcohol abuse F10.10 [facility] [id number] [place] [phone] May, Encounter for dental examina tion and cleaning without abnormal findings Z01.20 [facility] [id number] [id number] May, [facility] [id number] [place] [address] May, [facility]ed periods N92.6 [facility] [id number][place] [id number] Apr, Alcohol abuse F10.10 [facility] [address] [id number] [phone] Mar, [id number] [place] [phone] Mar, Alcohol abuse F10.10 ; Nausea and vomiti ng, intractability of vomiting not specified, unspecified vomiting type R11.2 and Encounter for test, result unknown Z32.00 [place] [address] [place] [address] [id number] [place] [phone] Oct, [place] [address] [place] [address] [id number] [place] [phone] Oct, [id number] [place] [phone] Jan, [place] [address] [phone] Jan, [place] [address] [place] [address] [id number] [place] [phone] Jan, [address]65[address] [id number] Jan, [place] [address] [place] [address] [id number] [place] [phone] Dec, [id number] [place] [phone] Dec, [place] [address] [place] [address] [id number] [place] [phone] Dec, [place] [address] [place] [address] [id number] [place] [phone] Feb, [address]65[address] [id number] Feb, IMMUNIZATIONS No Known Immunizations SOCIAL HISTORY Never Assessed REASON FOR VISIT EMR-[facility] PLAN OF CARE VITAL SIGNS MEDICATIONS Unknown Medications RESULTS No Results PROCEDURES No Known procedures INSTRUCTIONS MEDICATIONS ADMINISTERED No Known Medications MEDICAL (GENERAL) HISTORY Type Description Date Medical History hypertension Surgical History dilatation and curettage Hospitalization History Addiction treatment center 04/2016-07/2015
--- OUTSIDE RECORDS SUMMARY | 2019-12-02 19:35 | XMS REPORT ---
Author Author Mimi Lr Doctor Organization [facility] Address Unknown Phone Unavailable Care Team Providers Care Tamale Machine Feeder Name Role Phone Migration, Doctor Unavailable Unavailable PROBLEMS Type Condition ICD9-CM Code [id number] Code Onset Dates Condition S tatus SNOMED Code Problem Chronic pain syndrome G89.4 Active 794230392 Problem Asthma J45.909 Active 340945182 Problem Psoriasis L40.9 Active 4603124 Problem Alcohol abuse F10.10 Active 007766 05 Problem Essential hypertension I10 Active 50405700 ALLERGIES Substance Reaction Event Type Date Status Vicadin Unknown Non Drug Allergy Oct, Active ENCOUNTERS Encounter Location Date Diagnosis [place] [id number] [place] [phone] Jun, [place] [address] [place] [address] [id number] [place] [address] Jun, Well woman exam Z01.419 ; As thma J45.909 and Risky sexual behavior Z72.51 [place] [address] [place] [id number] [place] [address] Feb, Acute otitis externa of righ t ear, unspecified type H60.501 [facility] [id number] [place] [phone] Jan, Acute mucoid otitis media of right ear H65.111 [facility] [address] [place] [address] [id number] [place] [phone] Dec, Essential hypertension I10 a nd Chronic pain syndrome G89.4 [facility] [address] [place] [address] [id number] [place] [phone] 15 Aug, 2016 [facility] [address] [place] [address] [id number] [place] [phone] Aug, Dermatitis L30.9 ; Sebaceous cyst L72.3 ; Pain in right hand M79.641 and Pain of left hand M79.642 [facility] [address] [facility] [id number] [address] [place] [phone] Jul, [facility] [address] [facility] [id number] [address] [place] [id number] Jul, Encounter for dental examina tion Z01.20 [facility] [address] [facility] [id number] [address] [place] [phone] Jun, [facility] [address] [facility] [id number] [address] [place] [phone] Jun, [facility] [address] [facility] [id number] [address] [place] [phone] Jun, Dermatitis L30.9 [facility] [address] [place] [address] [id number] [place] [phone] Jun, [facility] [address] [place] [address] [id number] [place] [phone] May, [facility] [address] [place] [address] [id number] [place] [phone] May, Essential hypertension I10 [facility] [address] [facility] [id number] [address] [place] [phone] May, Dermatitis L30.9 ; Essential hypertension I10 and Alcohol abuse F10.10 [facility] [address] [place] [id number] [place] [phone] May, Encounter for dental examina tion and cleaning without abnormal findings Z01.20 [facility] [id number] [id number] May, [facility] [address] [place] [address] [id number] [place] [phone] May, Missed periods N92.6 [facility] [address] [id number] [id number] Apr, Alcohol abuse F10.10 [facility] [address] [address] [id number] [place] [id number] Mar, [address]65[address] [id number] Mar, Alcohol abuse F10.10 ; Nausea and vomiti ng, intractability of vomiting not specified, unspecified vomiting type R11.2 and Encounter for test, result unknown Z32.00 [facility] [address] [place] [address] [id number] [place] [phone] Oct, [place] [address] [place] [address] [id number] [place] [phone] Oct, [address] [place] [phone] Jan, [facility] [address] [place] [address] [id number] [place] [address] Jan, [facility] [address] [place] [address] [id number] [place] [address] Jan, [address] [place] [id number] Jan, [facility] [address] [place] [address] [id number] [place] [phone] Dec, [address]00565100[place], [place] [id number] Dec, [facility] [address] [place] [address] [id number] [place] [phone] Dec, [place] [address] [place] [address] [id number] [place] [phone] Feb, [place] [id number] [id number] Feb, IMMUNIZATIONS No Known Immunizations SOCIAL HISTORY Never Assessed REASON FOR VISIT EMR-[facility] PLAN OF CARE VITAL SIGNS MEDICATIONS Medication Instructions Dosage Frequency Start Date End Date Duration S tatus Grifulvin V 500 mg take 1 tablet (500 m g) by oral route once daily for 2 weekswith a fatty meal Feb, Activ e Bactrim DS 800-160 mg take 1 tablet by O ral route 2 times per day for 10 day(s) Dec, Active Cipro 500 mg 1 tablet by Oral route every 12 hours for 10 day(s) Feb, Active RESULTS No Results PROCEDURES No Known procedures INSTRUCTIONS MEDICATIONS ADMINISTERED No Known Medications MEDICAL (GENERAL) HISTORY Type Description Date Medical History hypertension Surgical History dilatation and curettage Hospitalization History Addiction treatment center 04/2016-1 07/2015
--- OUTSIDE RECORDS SUMMARY | 2019-12-02 19:35 | XMS REPORT ---
Author Author Mimi Lr Doctor Organization [facility] Address Unknown Phone Unavailable Care Team Providers Care Pharmacy Intake Technician Name Role Phone Migration, Doctor Unavailable Unavailable PROBLEMS Type Condition ICD9-CM Code ORL94-DB Code Onset Dates Condition S tatus SNOMED Code Problem Chronic pain syndrome G89.4 Active 129395126 Problem Asthma J45.909 Active 520257244 Problem Psoriasis L40.9 Active 0547337 Problem Alcohol abuse F10.10 Active 263361 05 Problem Essential hypertension I10 Active 92369476 ALLERGIES No Information ENCOUNTERS Encounter Location Date Diagnosis [place] [address] [place] [id number] [address] [place] [phone] Jun, [place] [address] [address] Jun, Well woman exam Z01.419 ; As thma J45.909 and Risky sexual behavior Z72.51 [place] [address] [place] [id number] [address] [place] [address] Feb, Acute otitis externa of righ t ear, unspecified type H60.501 [facility] [address] [place] [address] [id number] [address] [place] [address] Jan, Acute mucoid otitis media of right ear H65.111 [facility] [address] [place] [id number] [address] [place] [address] Dec, Essential hypertension I10 a nd Chronic pain syndrome G89.4 [facility] [address] [place] [id number] [address] [place] [phone] 15 Aug, 2016 [facility] [address] [facility] [id number] [address] [place] [address] 14 Aug, 2016 Dermatitis L30.9 ; Sebaceous cyst L72.3 ; Pain in right hand M79.641 and Pain of left hand M79.642 [facility] [address] [place] [address] Jul, [facility] [address] [place] [address] [id number] [address] [place] [id number] Jul, Encounter for dental examina tion Z01.20 [facility] [address] [facility] [id number] [address] [place] [phone] Jun, [facility] [address] [facility] [id number] [address] [place] [phone] Jun, [facility] [address] [facility] [id number] [address] [place] [address] Jun, Dermatitis L30.9 [facility] [address] [place] [id number] [address] [place] [phone] Jun, [facility] [address] [place] [address] [id number] [address] [place] [address] May, [facility] [address] [place] [id number] [address] [place] [address] May, Essential hypertension I10 [facility] [address] [place] [address] May, Dermatitis L30.9 ; Essential hypertension I10 and Alcohol abuse F10.10 [facility] [address] [place] [address] [id number] [address] [place] [address] [id number] May, Encounter for dental examina tion and cleaning without abnormal findings Z01.20 [facility] [id number] [phone] May, [facility] [address] [place] [address] [id number] [address] [place] [address] May, Missed periods N92.[address] [facility] [id number], [place] [id number] Apr, Alcohol abuse F10.10 [facility] [address] [place] [address] [id number] [id number] Mar, [id number] [place] [id number] Mar, Alcohol abuse F10.10 ; Nausea and vomiti ng, intractability of vomiting not specified, unspecified vomiting type R11.2 and Encounter for test, result unknown Z32.00 [place] [address] [place] [id number] [place] [address] Oct, [place] [address] [place] [id number] [address] [place] [address] Oct, [address] [place] [address] [id number] Jan, [place] [address] [address] Jan, [place] [address] [place] [id number] [address] [place] [address] Jan, [address]00565100[place] [id number] Jan, [place] [address] [place] [id number] [place] [address] Dec, [id number] [place] [id number] Dec, [place] [address] [place] [id number] [place] [address] Dec, [place] [address] [place] [id number] [place] [address] Feb, [address]00565100[place] [id number] Feb, IMMUNIZATIONS No Known Immunizations SOCIAL HISTORY Never Assessed REASON FOR VISIT [facility] PLAN OF CARE VITAL SIGNS MEDICATIONS Unknown Medications RESULTS No Results PROCEDURES No Known procedures INSTRUCTIONS MEDICATIONS ADMINISTERED No Known Medications MEDICAL (GENERAL) HISTORY Type Description Date Medical History hypertension Surgical History dilatation and curettage Hospitalization History Addiction treatment center 04/2016-07/2015
--- OUTSIDE RECORDS SUMMARY | 2019-12-02 19:35 | XMS REPORT ---
Author Author Mimi Lr Doctor Organization [facility] Address Unknown Phone Unavailable Care Team Providers Care Stage Director Name Role Phone Migration, Doctor Unavailable Unavailable PROBLEMS Type Condition ICD9-CM Code ULI64-EK Code Onset Dates Condition S tatus SNOMED Code Problem Chronic pain syndrome G89.4 Active 632797493 Problem Asthma J45.909 Active 422202984 Problem Psoriasis L40.9 Active 5554423 Problem Alcohol abuse F10.10 Active 222506 05 Problem Essential hypertension I10 Active 85621461 ALLERGIES No Information ENCOUNTERS Encounter Location Date Diagnosis [place] [address] [place] [id number] [address] [place] [address] Dec, [place] [address] [address] Jun, [place] [address] [place] [id number] [address] [place] [address] Jun, Well woman exam Z01.419 ; As thma J45.909 and Risky sexual behavior Z72.51 [place] [address] [place] [id number] [address] [place] [address] Feb, Acute otitis externa of righ t ear, unspecified type H60.501 [facility] [address] [facility] [id number] [address] [place] [address] Jan, Acute mucoid otitis media of right ear H65.111 [facility] [address] [facility] [id number] [address] [place] [address] Dec, Essential hypertension I10 a nd Chronic pain syndrome G89.4 [facility] [address] [facility] [id number] [address] [place] [address] 15 Aug, 2016 [facility] [address] [place] [id number] [address] [place] [address] Aug, Dermatitis L30.9 ; Sebaceous cyst L72.3 ; Pain in right hand M79.641 and Pain of left hand M79.642 [facility] [address] [facility] [id number] [address] [place] [address] Jul, [facility] [address] [facility] [id number] [address] [place] [address] [id number] Jul, Encounter for dental examina tion Z01.20 [facility] [address] [id number] [address] [place] [address] Jun, [facility] [address] [id number] [address] [place] [address] Jun, [facility] [address] [facility] [id number] [address] [place] [address] Jun, Dermatitis L30.9 [facility] [address] [facility] [id number] [address] [place] [address] Jun, [facility] [address] [facility] [id number] [address] [place] [address] May, [facility] [address] [facility] [id number] [address] [place] [address] May, Essential hypertension I10 [facility] [address] [facility] [id number] [address] [place] [address] May, Dermatitis L30.9 ; Essential hypertension I10 and Alcohol abuse F10.10 [facility] [address] [place] [address] [phone] May, Encounter for dental examina tion and cleaning without abnormal findings Z01.20 [facility] [address] [place] [address] [id number] [place] [phone] May, [facility] [address] [facility] [id number] [address] [place] [address] May, Missed periods N92.6 [facility] [id number] [place] [address] [id number] Apr, Alcohol abuse F10.10 [facility] [address] [place] [address] [id number] [place] [id number] Mar, [place] [id number] [id number] Mar, Alcohol abuse F10.10 ; Nausea and vomiti ng, intractability of vomiting not specified, unspecified vomiting type R11.2 and Encounter for test, result unknown Z32.00 [facility] [address] [place] [address] Oct, [facility] [address] [place] [id number] [address] [place] [address] Oct, [place] [id number] [place] [id number] Jan, [facility] [address] [place] [address] Jan, [facility] [address] [place] [id number] [address] [place] [address] Jan, [id number] [place] [id number] Jan, [facility] [address] [place] [id number] [address] [place] [address] Dec, [place] [id number] [id number] Dec, [facility] [address] [place] [id number] [address] [place] [address] Dec, [facility] [address] [place] [id number] [address] [place] [address] Feb, [place] [id number] [place] [id number] Feb, IMMUNIZATIONS No Known Immunizations SOCIAL HISTORY Never Assessed REASON FOR VISIT [facility] [place]AN OF CARE VITAL SIGNS MEDICATIONS Unknown Medications RESULTS No Results PROCEDURES No Known procedures INSTRUCTIONS MEDICATIONS ADMINISTERED No Known Medications MEDICAL (GENERAL) HISTORY Type Description Date Medical History hypertension Surgical History dilatation and curettage Hospitalization History Addiction treatment center 04/2016-07/2015
--- OUTSIDE RECORDS SUMMARY | 2019-12-02 19:36 | XMS REPORT ---
Author Author Mimi CLINTON [facility] IN [facility] Address [address] [place] [address] Care Team Providers Care Office Machine Installer Name Role Phone PANDA CLINTON Unavailable PROBLEMS Type Condition ICD9-CM Code SYN25-FH Code Onset Dates Condition S tatus SNOMED Code Problem Chronic pain syndrome G89.4 Active 635151737 Problem Alcohol abuse F10.10 Active 447052 05 Problem Essential hypertension I10 Active 52687370 Problem Psoriasis L40.9 Active 3133415 ALLERGIES Substance Reaction Event Type Date Status Vicodin itching Drug Allergy Jan, Active ENCOUNTERS Encounter Location Date Diagnosis [facility] [address] [place] [id number] [address] [place] [address] Feb, Acute otitis externa of righ t ear, unspecified type H60.501 [facility] IN [facility] [address] [place] [id number] [address] [place] [address] Jan, Acute mucoid otitis media of right ear H65.111 [facility] [address] [place] [address] Dec, Essential hypertension I10 a nd Chronic pain syndrome G89.4 [facility] [address] [place] [id number] [address] [place] [address] 15 Aug, 2016 [facility] [address] [place] [id number] [address] [place] [address] Aug, Dermatitis L30.9 ; Sebaceous cyst L72.3 ; Pain in right hand M79.641 and Pain of left hand M79.642 [facility] [address] [place] [id number] [address] [place] [address] Jul, [facility] [address] [facility] [id number] [address] [place] [address] [phone] Jul, Encounter for dental examina tion Z01.20 [facility] [address] [facility] [id number] [address] [place] [address] Jun, [facility] [address] [facility] [id number] [address] [place] [address] Jun, [facility] [address] [facility] [id number] [address] [place] [address] Jun, Dermatitis L30.9 [facility] [address] [facility] [id number] [address] [place] [phone] Jun, [facility] [address] [address] May, [facility] [address] [place] [id number] [address] [place] [address] May, Essential hypertension I10 [facility] [address] [place] [address] May, Dermatitis L30.9 ; Essential hypertension I10 and Alcohol abuse F10.10 [facility] [address] [place] [address] [id number] [address] [place] [address] [id number] May, Encounter for dental examina tion and cleaning without abnormal findings Z01.20 [facility] [id number] [id number] May, [facility] [address] [place] [address] [id number] [address] [place] [address] May, Missed periods N92.6 [facility] [id number][place] [id number] Apr, Alcohol abuse F10.10 [facility] [address] [place] [address] [id number] [id number] Mar, [facility] [address] [place] [id number] [id number] Mar, Alcohol abuse F10.10 ; Nausea and vomiti ng, intractability of vomiting not specified, unspecified vomiting type R11.2 and Encounter for test, result unknown Z32.00 [place] [address] [address] 14 Oct, 2014 [place] [address] [address] Oct, [place] [id number] [email or web address] [id number] Jan, [place] [address] [address] Jan, [place] [address] [address] Jan, [place] [id number] [email or web address], [place] [phone] Jan, [facility] [address] [place] [id number] [address] [place] [address] Dec, [place] [id number] [id number] Dec, [place] [address] [address] Dec, [place] [address] [address] Feb, [place] [id number] [place] [phone] Feb, IMMUNIZATIONS No Known Immunizations SOCIAL HISTORY Never Assessed REASON FOR VISIT Right ear ache started last week JStrasserRN PLAN OF CARE Activity Details Follow Up prn Reason:if symptoms worse n VITAL SIGNS Height 64.25 in 2018-02-09 Weight 131.6 lbs 2018-02-09 Temperature 99.1 degrees Fahrenheit 2018-02-09 Heart Rate 76 bpm 2018-02-09 Respiratory Rate 20 2018-02-09 BMI 22.41 kg/m2 2018-02-09 Blood pressure systolic 110 mmHg 2018-02-09 Blood pressure diastolic 80 mmHg 2018-02-09 MEDICATIONS Medication Instructions Dosage Frequency Start Date End Date Duration S tatus ProAir HFA 108 (90 Base) MCG/ACT Inhalation every 4 hrs 2 puffs as needed 4h 29 Dec, 2016 Not-Taking Calcium Magnesium Not-Ta gretchen Zinc Not-Taking Propranolol HCl 20 mg PO Twice a day 1 12h 30 Not-Taking Amoxicillin 875 MG Orally every 12 hrs 1 tablet 12h Jan, 8 Jan, 07 days Active Calcium 1 tab Not-Taking Potassium Not-Taking Neurontin 300 MG Orally Three times a day 1 capsule 8h Mar, Not-Taking Carbamide Peroxide 6.5 % Otic Twice a day 5 drops into affected ear 12h Jan, Jan, 4 day(s) Active Gabapentin 300 MG Orally TID 1 8h 30 days Not -Taking RESULTS No Results PROCEDURES No Known procedures INSTRUCTIONS MEDICATIONS ADMINISTERED No Known Medications MEDICAL (GENERAL) HISTORY Type Description Date Medical History hypertension Surgical History dilatation and curettage Hospitalization History Addiction treatment center 04/2016-07/2015
--- OUTSIDE RECORDS SUMMARY | 2019-12-02 19:36 | XMS REPORT ---
Author Author Mimi CLINTON [facility] IN [facility] Address [address] [place] [address] Care Team Providers Care Concept Artist Name Role Phone PANDA CLINTON Unavailable PROBLEMS Type Condition ICD9-CM Code EPD24-PX Code Onset Dates Condition S tatus SNOMED Code Problem Asthma J45.909 Active 068326550 Problem Chronic pain syndrome G89.4 Active 861179972 Problem Psoriasis L40.9 Active 0868922 Problem Essential hypertension I10 Active 81099636 Problem Alcohol abuse F10.10 Active 355031 05 ALLERGIES No Information ENCOUNTERS Encounter Location Date Diagnosis [place] [address] [place] [address] Jun, [place] [address]88[address] N [place] [id number] [address] [place] [address] Jun, Well woman exam Z01.419 ; As thma J45.909 and Risky sexual behavior Z72.51 [place] [address] [place] [id number] [address] [place] [address] Feb, Acute otitis externa of righ t ear, unspecified type H60.501 [facility] IN [facility] [address] [place] [id number] [address] [place] [address] Jan, Acute mucoid otitis media of right ear H65.111 [facility] [address] [facility] [id number] [address] [place] [phone] Dec, Essential hypertension I10 a nd Chronic pain syndrome G89.4 [facility] [address] [facility] [id number] [address] [place] [address] 15 Aug, 2016 [place] [address] [place] [id number] [address] [place] [address] 14 Aug, 2016 Dermatitis L30.9 ; Sebaceous cyst L72.3 ; Pain in right hand M79.641 and Pain of left hand M79.642 [facility] [address] [facility] [id number] [address] [place] [address] Jul, [facility] [address] [place] [id number] Jul, Encounter for dental examina tion Z01.20 [facility] [address] [facility] [id number] [address] [place] [phone] Jun, [facility] [address] [facility] [id number] [address] [place] [address] Jun, [facility] [address] [place] [id number] [place] [address] Jun, Dermatitis L30.9 [facility] [address] [address] Jun, [facility] [address] [place] [id number] [address] [place] [address] May, [facility] [address] [address] May, Essential hypertension I10 [facility] [address] [address] May, Dermatitis L30.9 ; Essential hypertension I10 and Alcohol abuse F10.10 [facility] [address] [place] [address] [phone] May, Encounter for dental examina tion and cleaning without abnormal findings Z01.20 [facility] [address] [id number] [place] [id number] May, [facility] [address] [place] [id number] [address] [place] [address] May, Missed periods N92.6 [facility] [address] [id number] [place] [id number] Apr, Alcohol abuse F10.10 [facility] [address] [facility] [id number] [id number] Mar, [facility] [address] [place], [place] [id number] [id number] Mar, Alcohol abuse F10.10 ; Nausea and vomiti ng, intractability of vomiting not specified, unspecified vomiting type R11.2 and Encounter for test, result unknown Z32.00 [facility] [address] [place] [id number] [address] [place] [phone] Oct, [facility] [address] [place] [id number] [address] [place] [address] Oct, [place] [id number] [place] [id number] Jan, [facility] [address] [place] [address] [id number] [address] [place] [address] Jan, [facility] [address] [place] [id number] [address] [place] [phone] Jan, [address]00565100[facility] [place] [id number] Jan, [facility] [address] [place] [id number] [address] [place] [phone] Dec, [place] [id number] [id number] Dec, [facility] [address] [place] [id number] [address] [place] [phone] Dec, [facility] [address] [place] [id number] [address] [place] [phone] Feb, [facility] [address] [place], [place] [id number] [place] [id number] Feb, IMMUNIZATIONS No Known Immunizations SOCIAL HISTORY Never Assessed REASON FOR VISIT [facility] Second hx updated PLAN OF CARE VITAL SIGNS MEDICATIONS Unknown Medications RESULTS No Results PROCEDURES No Known procedures INSTRUCTIONS MEDICATIONS ADMINISTERED No Known Medications MEDICAL (GENERAL) HISTORY Type Description Date Medical History hypertension Surgical History dilatation and curettage Hospitalization History Addiction treatment center 04/2016-07/2015
--- OUTSIDE RECORDS SUMMARY | 2019-12-02 19:36 | XMS REPORT ---
Author Author Mimi BLAKE Organization [facility] Address [address] [place] [address] Care Team Providers Care Film Producer Name Role Phone MIAH BLAKE Unavailable PROBLEMS Type Condition ICD9-CM Code [id number] Code Onset Dates Condition S tatus SNOMED Code Problem Chronic pain syndrome G89.4 Active 592052335 Problem Alcohol abuse F10.10 Active 406685 05 Problem Essential hypertension I10 Active 10542745 Problem Psoriasis L40.9 Active 8870936 ALLERGIES Substance Reaction Event Type Date Status Vicodin itching Drug Allergy Feb, Active ENCOUNTERS Encounter Location Date Diagnosis [facility] [address] [place] [id number] [place] [phone] Feb, Acute otitis externa of righ t ear, unspecified type H60.501 [facility] [address] [place] [id number] [place] [address] Jan, Acute mucoid otitis media of right ear H65.111 [facility] [address] [id number] [address] [place] [address] Dec, Essential hypertension I10 a nd Chronic pain syndrome G89.4 [facility] [address] [id number] [place] [phone] 15 Aug, 2016 [facility] [address] [id number] [address] [place] [phone] Aug, Dermatitis L30.9 ; Sebaceous cyst L72.3 ; Pain in right hand M79.641 and Pain of left hand M79.642 [facility] [id number] [place] [address] Jul, [facility] [address] [facility] [id number] [address] [place] [id number] Jul, Encounter for dental examina tion Z01.20 [facility] [address] [facility] [id number] [address] [place] [phone] Jun, [facility] [address] [facility] [id number] [address] [place] [phone] Jun, [facility] [address] [facility] [id number] [address] [place] [phone] Jun, Dermatitis L30.9 [facility] [address] [facility] [id number] [address] [place] [phone] Jun, [facility] [address] [facility] [id number] [address] [place] [phone] May, [facility] [address] [facility] [id number] [address] [place] [phone] May, Essential hypertension I10 [facility] [address] [facility] [id number] [address] [place] [phone] May, Dermatitis L30.9 ; Essential hypertension I10 and Alcohol abuse F10.10 [facility] [address] [place] [address] [id number] [address] [place] [phone] May, Encounter for dental examina tion and cleaning without abnormal findings Z01.20 [facility] [id number] [phone] May, [facility] [address] [id number] [address] [place] [phone] May, Missed periods N92.6 [facility] [id number] [id number] Apr, Alcohol abuse F10.10 [facility] [address] [id number] [phone] Mar, [facility] [address] [id number] [id number] Mar, Alcohol abuse F10.10 ; Nausea and vomiti ng, intractability of vomiting not specified, unspecified vomiting type R11.2 and Encounter for test, result unknown Z32.00 [place] [address] [phone] 14 Oct, 2014 [place] [address] [address] Oct, [place] [id number] [place] [phone] Jan, [place] [address] [phone] Jan, [place] [address] [phone] Jan, [place] [id number] [place] [phone] Jan, [place] [address] [place] [address] [id number] [place] [phone] Dec, [place] [id number] [place] [id number] Dec, [place] [address] [id number] [place] [address] Dec, [address] [address] Feb, [place] [id number] [place] [address] [phone] Feb, IMMUNIZATIONS No Known Immunizations SOCIAL HISTORY Never Assessed REASON FOR VISIT Earache to R ear for the past week, was seen in walk in clinic and also ER for t ludin Villalobos RN, took one round of antibiotics and is using ear drops from ER with numbing agent and ear wax removal she does not have any of the medicati on with her PLAN OF CARE Activity Details Follow Up 1 Week with Mallorie if not imp roving Reason: VITAL SIGNS Height 64.25 in 2018-02-24 Weight 133.2 lbs 2018-02-24 Temperature 99.6 degrees Fahrenheit 2018-02-24 Heart Rate 85 bpm 2018-02-24 Respiratory Rate 18 2018-02-24 BMI 22.68 kg/m2 2018-02-24 Blood pressure systolic 112 mmHg 2018-02-24 Blood pressure diastolic 82 mmHg 2018-02-24 MEDICATIONS Medication Instructions Dosage Frequency Start Date End Date Duration S tatus Cefdinir 300 MG Orally 2 times a day as directed 12h Feb, 201 8 15 Feb, 2018 07 days Active ProAir HFA 108 (90 Base) MCG/ACT Inhalation every 4 hrs 2 puffs as needed 4h Dec, Active RESULTS No Results PROCEDURES No Known procedures INSTRUCTIONS MEDICATIONS ADMINISTERED No Known Medications MEDICAL (GENERAL) HISTORY Type Description Date Medical History hypertension Surgical History dilatation and curettage Hospitalization History Addiction treatment center 04/2016-07/2015
--- OUTSIDE RECORDS SUMMARY | 2019-12-02 19:36 | XMS REPORT ---
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 Name Role Phone PANDA CLINTON Unavailable PROBLEMS Type Condition ICD9-CM Code KYY00-RD Code Onset Dates Condition S tatus SNOMED Code Problem Asthma J45.909 Active 355459151 Problem Chronic pain syndrome G89.4 Active 839918015 Problem Psoriasis L40.9 Active 2896862 Problem Essential hypertension I10 Active 97510302 Problem Alcohol abuse F10.10 Active 035273 05 ALLERGIES Substance Reaction Event Type Date Status Vicodin itching Drug Allergy Jun, Active ENCOUNTERS Encounter Location Date Diagnosis [place] [address] [place] [phone] Jun, Well woman exam Z01.419 ; As thma J45.909 and Risky sexual behavior Z72.51 [place] [address] [place] [id number] [place] [phone] Feb, Acute otitis externa of righ t ear, unspecified type H60.501 [facility] [address] [id number] [address] [place] [address] Jan, Acute mucoid otitis media of right ear H65.111 [place] [address] [place] [id number] [place] [phone] Dec, Essential hypertension I10 a nd Chronic pain syndrome G89.4 [place] [address] [place] [address] [id number] [place] [address] 15 Aug, 2016 [place] [address] [place] [id number] [place] [phone] 14 Aug, 2016 Dermatitis L30.9 ; Sebaceous cyst L72.3 ; Pain in right hand M79.641 and Pain of left hand M79.642 [facility] [address] [facility] [id number] [address] [place] [phone] Jul, [facility] [address] [facility] [id number] [address] [place] [phone] Jul, Encounter for dental examina tion Z01.20 [facility] [address] [facility] [id number] [address] [place] [phone] Jun, [facility] [address] [id number] [address] [place] [phone] Jun, [facility] [address] [facility] [id number] [address] [place] [phone] Jun, Dermatitis L30.9 [facility] [address] [facility] [id number] [address] [place] [phone] Jun, [facility] [id number] [place] [phone] May, [facility] [address] [facility] [id number] [address] [place] [phone] May, Essential hypertension I10 [facility] [address] [facility] [id number] [address] [place] [phone] May, Dermatitis L30.9 ; Essential hypertension I10 and Alcohol abuse F10.10 [facility] [address] [id number] [address] [place] [phone] May, Encounter for dental examina tion and cleaning without abnormal findings Z01.20 [facility] [id number] [phone] May, [facility] [id number] [address] [place] [phone] May, Missed periods N92.6 [facility] [id number][place] [id number] Apr, Alcohol abuse F10.10 [facility] [address] [facility] [id number] [facility] [phone] Mar, [id number] [place] [phone] Mar, Alcohol abuse F10.10 ; Nausea and vomiti ng, intractability of vomiting not specified, unspecified vomiting type R11.2 and Encounter for test, result unknown Z32.00 [facility] [address] [place] [id number] [address] [place] [phone] Oct, [facility] [address] [id number] [address] [place] [address] Oct, [id number] [id number] Jan, [facility] [address] [place] [id number] [address] [place] [phone] Jan, [facility] [address] [id number] [address] [place] [phone] Jan, [id number] [place] [phone] Jan, [facility] [address] [id number] [address] [place] [phone] Dec, [id number] [id number] Dec, [facility] [address] [id number] [address] [place] [address] Dec, [facility] [address] [id number] [address] [place] [phone] Feb, [place] [id number] [phone] Feb, IMMUNIZATIONS No Known Immunizations SOCIAL HISTORY Never Assessed REASON FOR VISIT Well Woman Exam Ghazala BUNDY, Pt stated she started her period last month on the 4t h and bled until the . She stated it wasn't heavy or constant. Ghazala BUNDY PLAN OF CARE Activity Details Follow Up w/ PCP Reason:irregular mens es Pending Test GC/CHLAM PROBE (STATE) Pending Test PAP AND HPV REFLEX GENOTYPES 16, 18/45 Pending Test CULTURE, GENITAL VITAL SIGNS Height 64.25 in 2018-06-29 Weight 136.7 lbs 2018-06-29 Temperature 97.9 degrees Fahrenheit 2018-06-29 Heart Rate 83 bpm 2018-06-29 Respiratory Rate 20 2018-06-29 BMI 23.28 kg/m2 2018-06-29 Blood pressure systolic 122 mmHg 2018-06-29 Blood pressure diastolic 82 mmHg 2018-06-29 MEDICATIONS Medication Instructions Dosage Frequency Start Date End Date Duration S tatus ProAir HFA 108 (90 Base) MCG/ACT Inhalation every 4 hrs 2 puffs as needed 4h Dec, Active RESULTS Name Result Date Reference Range TRICHOMONAS (IN HOUSE) 2018-06-29 TRICHOMONAS negative Control + Lot # [id number] Exp date 08/2019 BACTERIAL VAGINOSIS (IN HOUSE) 2018-06-29 RESULTS negative Control + Lot # [id number] Exp date 02/2019 PROCEDURES Procedure Date Ordered Result Body Site SPECIMEN HANDLING Jun 29, 2018 No Charge Jun 29, 2018 TRICHOMONAS ASSAY W/OPTIC Jun 29, 2018 CULTURE, BACTERIA, OTHER Jun 29, 2018 Bacterial Vaginosis In House Jun 29, 2018 INSTRUCTIONS MEDICATIONS ADMINISTERED No Known Medications MEDICAL (GENERAL) HISTORY Type Description Date Medical History hypertension Surgical History dilatation and curettage Hospitalization History Addiction treatment center 04/2016-1 07/2015
[2019-12-02] MEDS ORDERED: morphine INJ 10 MG/ML 1ML (SYR OR VIAL) IVP STA (19:45)
[2019-12-02] MEDS ORDERED: SODIUM BICARB 8.4% 50 MEQ/50 ML VIAL IV ONE (20:00)
[2019-12-02] MEDS ORDERED: RX-OXYCODONE/APAP 5-325 MG #4 TAB PK PO PRN (20:30)
[2019-12-02] MEDS ORDERED: TRIM/SULFAMETH 160/800 (SEPTRA DS) TAB PO ONE (20:30)
[2019-12-02] MEDS ORDERED: OXYC-199 PO (20:32)
[2019-12-02] MEDS ORDERED: SULF1TAB35 PO (20:32)
[2019-12-02] MEDS ORDERED: DOCU-143 PO (20:34)
[2019-12-02 21:07] VITALS: BP 125/79
--- NOTE | 2019-12-02 21:08 | NUR ---
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
== END 2019-12-02 21:22 | disposition home or self-care (01) ==
LOC: EDUNIT# 18:11 → ER 18:12
DX: S52.591A Other fractures of lower end of right radius, initial encounter for closed fracture (principal); Z77.22 Contact with and (suspected) exposure to environmental tobacco smoke (acute) (chronic); Z23 Encounter for immunization; W31.89XA Contact with other specified machinery, initial encounter
CPT/HCPCS: 29125; 64450; 73090; 73130; 90471; 90715; 96374; 96375